=== PATIENT | male | born 1955 | race Caucasian/White ===

== ENCOUNTER 2019-10-11 07:57 | Day surgery (SDC) | payer OTHER, MEDICARE ==
[2019-10-08 11:44] LABS: ABSOLUTE EOSINOPHILS # (AUTO) 0.1 10^3/uL (0.0-0.6); ABSOLUTE LYMPHOCYTES (AUTO) 2.8 10^3/uL (0.5-4.7); ABSOLUTE MONOCYTES (AUTO) 0.4 10^3/uL (0.1-1.4); ABSOLUTE NEUT (AUTO) 3.6 10^3/uL (1.7-8.2); BASOPHILS % (AUTO) 0.5 % (0-2); EOSINOPHILS % (AUTO) 1.5 % (0-6); HEMATOCRIT 39.6 % (37.9-51.0); HEMOGLOBIN 13.8 g/dL (13.5-17.0); LYMPHOCYTES % (AUTO) 40.8 % (13-45); MEAN CORPUSCULAR HEMOGLOBIN 32.9 pg (27.0-33.4); MEAN CORPUSCULAR HGB CONC 34.9 g/dL (32.0-36.0); MEAN CORPUSCULAR VOLUME 94 fl (80-97); MONOCYTES % (AUTO) 5.4 % (3-13); PLATELET COUNT 186 10^3/uL (150-450); RED CELL DISTRIBUTION WIDTH 14.1 % (11.5-14.0); SEGMENTED NEUTROPHILS % (AUTO) 51.8 % (42-78); TOTAL CELLS COUNTED % (AUTO) 100 %; WHITE BLOOD COUNT 6.9 10^3/uL (4.0-10.5)
[2019-10-08 12:09] LABS: ANION GAP 6 (5-19); BLOOD UREA NITROGEN 8 mg/dL (7-20); CALCIUM 8.9 mg/dL (8.4-10.2); CARBON DIOXIDE 33 mmol/L (22-30); CHLORIDE 97 mmol/L (98-107); GLUCOSE 97 mg/dL (75-110); POTASSIUM 3.2 mmol/L (3.6-5.0)
--- NOTE | 2019-10-08 14:59 | EKG REPORT ---
SEVERITY:- BORDERLINE ECG - SINUS RHYTHM BORDERLINE T WAVE ABNORMALITIES : Confirmed by: Greer Anne MD 08-Oct-2019 14:58:24
[~2019-10-11 07:57] MED LIST: ACETAMINOPHEN 325 MG TABLET PO PRN; CEFAZOLIN 2 GM/D5W RTU 2 GM/50 ML RTUPB IV PRN; CELECOXIB 200 MG CAPSULE PO PRN; DEXAMETHASONE SOD PHOSPHATE INJ 4 MG/1 ML VIAL ONE; EPINEPHRINE INJ/PF 1 MG/1 ML AMPULE ONE; FENTANYL CITRATE INJ/PF 100 MCG/2 ML AMPUL ONE; GABAPENTIN 100 MG CAPSULE PO PRN; LACTATED RINGERS 1000 ML IV PRN; LIDOCAINE 0.5% INJ-PF (5 MG/ML) 50 ML SDV SUBCUT PRN; MIDAZOLAM 2 MG/2 ML INJ ONE; ONDANSETRON HCL INJ/PF 4 MG/2 ML SDV IV PRN; ONDANSETRON HCL INJ/PF 4 MG/2 ML SDV ONE; OXYCODONE HCL SR 10 MG TABLET PO PRN; PROPOFOL INJ 200 MG/20 ML VIAL IV ONE; SCOPOLAMINE HYDROBROMIDE 1.5 MG PATCH.TD72 TD PRN; TRAMADOL HCL 50 MG TABLET PO PRN; TRANEXAMIC ACID INJ/PF 1,000 MG/10 ML SDV IV PRN; TRANEXAMIC ACID INJ/PF 1,000 MG/10 ML SDV ONE; VANCOMYCIN HCL 1,000 MG in DEXTROSE 5%-WATER 250 ML IV PRN
[2019-10-11] MEDS ORDERED: CEFAZOLIN 2 GM/D5W RTU 2 GM/50 ML RTUPB IV ONE (08:31)
[2019-10-11] MEDS ORDERED: ONDANSETRON HCL INJ/PF 4 MG/2 ML SDV ONE (08:31)
[2019-10-11] MEDS ORDERED: ACETAMINOPHEN 325 MG TABLET ONE (08:31)
[2019-10-11] MEDS ORDERED: SCOPOLAMINE HYDROBROMIDE 1.5 MG PATCH.TD72 ONE (08:31)
[2019-10-11] MEDS ORDERED: CELECOXIB 200 MG CAPSULE ONE (08:31)
[2019-10-11] MEDS ORDERED: TRAMADOL HCL 50 MG TABLET ONE (08:31)
[2019-10-11] MEDS ORDERED: OXYCODONE HCL SR 10 MG TABLET PO ONE (08:31)
[2019-10-11] MEDS ORDERED: GABAPENTIN 100 MG CAPSULE ONE (08:32)
[2019-10-11 09:00] LABS: INTERNATIONAL RATION (INR) 0.98; PARTIAL THROMBOPLASTIN TIME 28.7 SEC (23.5-35.8)
[2019-10-11] MEDS ORDERED: KETOROLAC TROMETHAMINE INJ/PF 30 MG/1 ML SDV ONE (10:26)
[2019-10-11] MEDS ORDERED: VANCOMYCIN HCL INJ 1000 MG VIAL ONE (10:26)
[2019-10-11] MEDS ORDERED: LIDOCAINE 1% INJ-PF (10 MG/ML) 30 ML SDV ONE (10:26)
[2019-10-11] MEDS ORDERED: BUPIVACAINE HCL 0.25 % INJ/PF (2.5 MG/1 ML) 30 ML VIAL ONE (10:26)
[2019-10-11] MEDS ORDERED: KETAMINE HCL INJ 500 MG/10 ML VIAL ONE (10:39)
[2019-10-11] MEDS ORDERED: CEFAZOLIN INJ 1 GM VIAL ONE (11:28)
[2019-10-11] MEDS ORDERED: MORPHINE SULFATE 10 MG/ML INJ IV PRN ×2 (12:26→14:04)
[2019-10-11] MEDS ORDERED: MEPERIDINE HCL/PF INJ 25 MG/1 ML DISP.SYRIN IV PRN (12:26)
[2019-10-11] MEDS ORDERED: FENTANYL CITRATE INJ/PF 100 MCG/2 ML AMPUL IV PRN ×3 (12:26)
[2019-10-11] MEDS ORDERED: ONDANSETRON HCL INJ/PF 4 MG/2 ML SDV IV PRN (12:26)
[2019-10-11] MEDS ORDERED: DIPHENHYDRAMINE HCL 50 MG/ML VIAL IV PRN (12:26)
[2019-10-11] MEDS ORDERED: PROMETHAZINE HCL INJ 25 MG/1 ML VIAL IV PRN ×2 (12:26)
--- NOTE | 2019-10-11 14:02 | Operative Report ---
Operative Report DATE OF SURGERY: 10/11/19 PREOPERATIVE DIAGNOSIS: Right severe primary hip osteoarthritis POSTOPERATIVE DIAGNOSIS: Right severe primary hip osteoarthritis OPERATION: Right total hip arthroplasty SURGEON: THOMAS BECERRA JR ANESTHESIA: Spinal COMPLICATIONS: none ESTIMATED BLOOD LOSS: 200 PROCEDURE: Implants: Joe Accolade size 5 femoral stem with 127 offset, a 56 size cup, and a 36 standard liner, a standard neck length 36 mm ceramic head BRIEF HISTORY: 63 year old male with severe degenerative arthritis of right hip, which has failed conservative treatment and has elected for a total hip arthroplasty. Risks include but are not limited to bleeding, infection, anesthesia, , injury to nerve or vessel, pain, scar, leg length inequality, dislocation, future surgery, and blood clots. Patient read through the pre-op counseling form and signed and solicited for surgery on their right hip. OPERATIVE PROCEDURE: Patient was brought to the operating room on and underwent spinal anesthesia. 3 grams of Ancef and 1 g of vancomycin was given. After proper anesthesia was obtained, patient was positioned, padded, prepped, and draped in the usual sterile fashion on the operating room table. Appropriate time out was performed. An anterior approach to the hip was undertaken with meticulous hemostasis through the deep interval. A capsulectomy was performed followed by exposure of the femoral neck. The femoral neck was cut in line with the femoral broach and the femoral head was removed. The acetabulum was then exposed with three retractors in an atraumatic fashion. Soft tissue and osteophytes were removed. Medialization reaming was performed followed by anatomic reaming up to accept a 56 mm acetabulum. Wound was irrigated with dilute betadyne solution and the 56 mm acetabulum was impacted into correct position and stability checked by manipulating the impaction handle which rocked the pelvis. A standard liner was impacted into the shell with good stability. Potential impinging osteophytes were removed. Attention was then directed toward the femur, which was exposed with two retractors in an atraumatic fashion. A bone hook was placed to carefully perform releases along the superior capsule until the femur was safely delivered through the wound. A box blank machine feeder was utilized followed by lateralization rasping and then broaching up to accept a 5 femur. With a 127 offset neck and a -5 head, stability was good in flexion and extension with slightly short on the right leg lengths. The real 127 offset femur was impacted into a copiously irrigated femoral canal. A -5 mm 36 mm head was impacted on a clean dry femoral taper. The hip was irrigated and reduced. Unfortunately after subsequent trialing this was found to be unstable. We reevaluated the hip stem and found that it had seated further than the broach by 2 to 3 mm. Fluoroscopy was used to ensure that this was not due to a femoral fracture. We impacted the femoral stem further but no further seating was capable. We removed the -5 head and re-impacted a standard head that produced near equal leg length with slight increased leg length on the right but overall excellent stability. Further irrigation with antibiotic solution, betadine solution, then antibiotic solution. Bleeders were coagulated with bovie cautery. The fascia was then closed with number 2 Stratofix; the subcutaneous tissue closed with interrupted inverted 2-0 monocryl then running 3-0 monocryl subcuticular. Dermabond skin glue was applied followed by a silver dressing. All needle sponge and instrument counts were correct. Patient was awakened from sedation anesthesia and taken to recovery room in good condition. Patient is a BMI of 38.8 and additionally is very muscular. This required increased effort and time to achieve an adequate exposure and work around a tight hip with substantial soft tissue. Increased effort was required to per form releases in order to expose the femur but also carefully enough to ensure that he maintains stability post operatively. Due to increased time and effort will be billing a 22 modifier. Thank you, Thomas Becerra, DO
[2019-10-11] MEDS ORDERED: OXYCODONE HCL IR 5 MG TABLET PO PRN (14:03)
[2019-10-11] MEDS ORDERED: DIPHENHYDRAMINE HCL 25 MG CAPSULE PO PRN (14:07)
[2019-10-11] MEDS ORDERED: PANTOPRAZOLE SODIUM 20 MG TABLET.DR PO PRN (14:07)
[2019-10-11] MEDS ORDERED: ZOLPIDEM TARTRATE 5 MG TABLET PO PRN (14:08)
[2019-10-11] MEDS ORDERED: DOCUSATE SODIUM 100 MG CAPSULE PO PRN (14:08)
[2019-10-11] MEDS ORDERED: NORMAL SALINE 1000 ML 1,000 ML IV PRN (14:09)
[2019-10-11] MEDS ORDERED: ONDANSETRON 4 MG TAB.RAPDIS PO PRN (14:10)
--- NOTE | 2019-10-11 14:33 | RADIOLOGY REPORT (SQ) ---
EXAM DESCRIPTION: HIP IN OPERATING RM; NO CHG FLUORO IMAGES COMPLETED DATE/TIME: 10/11/2019 1:32 pm REASON FOR STUDY: RIGHT HIP ARTHROPLASTY ASSISTED WITH FLUORO IN OR M25.551 PAIN IN RIGHT HIP COMPARISON: Outside films 06/26/2019 FLUOROSCOPY TIME: 0.2 minutes 3 digital fluoroscopic images saved to PACS. TECHNIQUE: Intra-operative images acquired during surgical procedure to evaluate progress. NUMBER OF IMAGES: 3 digital fluoroscopic images LIMITATIONS: None. FINDINGS: Intra procedural imaging and fluoro during right hip replacement. Please see the operativ e report for further details IMPRESSION: IMAGE(S) OBTAINED DURING PROCEDURE. COMMENT: Quality ID [id number]: Final reports for procedures using fluoroscopy that document radiation exp osure indices, or exposure time and number of fluorographic images (if radiation exposure indices are not available) Please consult full operative report of the attending physician for description of the procedure. TECHNICAL DOCUMENTATION: JOB ID: [id number] 2010 [employer]- All Rights Reserved Reading location - IP/workstation name: [email or web address]
--- NOTE | 2019-10-11 14:33 | RADIOLOGY REPORT (SQ) ---
EXAM DESCRIPTION: HIP IN OPERATING RM; NO CHG FLUORO IMAGES COMPLETED DATE/TIME: 10/11/2019 1:32 pm REASON FOR STUDY: RIGHT HIP ARTHROPLASTY ASSISTED WITH FLUORO IN OR M25.551 PAIN IN RIGHT HIP COMPARISON: Outside films 06/26/2019 FLUOROSCOPY TIME: 0.2 minutes 3 digital fluoroscopic images saved to PACS. TECHNIQUE: Intra-operative images acquired during surgical procedure to evaluate progress. NUMBER OF IMAGES: 3 digital fluoroscopic images LIMITATIONS: None. FINDINGS: Intra procedural imaging and fluoro during right hip replacement. Please see the operativ e report for further details IMPRESSION: IMAGE(S) OBTAINED DURING PROCEDURE. COMMENT: Quality ID [id number]: Final reports for procedures using fluoroscopy that document radiation exp osure indices, or exposure time and number of fluorographic images (if radiation exposure indices are not available) Please consult full operative report of the attending physician for description of the procedure. TECHNICAL DOCUMENTATION: JOB ID: [id number] 2010 [employer]- All Rights Reserved Reading location - IP/workstation name: [email or web address]
--- NOTE | 2019-10-11 14:35 | RADIOLOGY REPORT (SQ) ---
EXAM DESCRIPTION: HIP RIGHT AP/LATERAL IMAGES COMPLETED DATE/TIME: 10/11/2019 2:27 pm REASON FOR STUDY: HIP REPLACEMENT M25.551 PAIN IN RIGHT HIP COMPARISON: None. NUMBER OF VIEWS: Two views. TECHNIQUE: AP pelvis and additional frog-leg view of the right hip. LIMITATIONS: None. FINDINGS: Bilateral total hip arthroplasty. No evidence of loosening or infection. No dislocation. IMPRESSION: Intact hip arthroplasty. TECHNICAL DOCUMENTATION: JOB ID: [id number] 2010 [employer]- All Rights Reserved Reading location - IP/workstation name: [email or web address]
[2019-10-11] MEDS ORDERED: GLYCOPYRROLATE 1 MG/5 ML VIAL ONE (14:55)
[2019-10-11] MEDS ORDERED: PHENYLEPHRINE HCL INJ/PF 10 MG/1 ML SDV ONE (14:55)
[2019-10-11] MEDS ORDERED: HYDROCODONE/ACETAMINOPHEN 10-325 MG TABLET PO SCH (15:15)
[2019-10-11] MEDS ORDERED: CEFAZOLIN SODIUM 2 GM in DEXTROSE 5%-WATER 100 ML IV SCH (18:00)
[2019-10-11] MEDS ORDERED: TAMSULOSIN HCL 0.4 MG CAP.SR.24H PO SCH (18:00)
[2019-10-11] MEDS: GABAPENTIN 100 MG CAPSULE PO SCH (18:00)
[2019-10-11] MEDS: DIAZEPAM 5 MG TABLET PO SCH (18:01)
[2019-10-11] MEDS: KETOROLAC TROMETHAMINE INJ/PF 30 MG/1 ML SDV IV SCH (18:02)
[2019-10-11] MEDS: CEFAZOLIN SODIUM 2 GM in DEXTROSE 5%-WATER 100 ML IV SCH (19:09)
[2019-10-11] MEDS: ACETAMINOPHEN 325 MG TABLET PO SCH (21:36)
[2019-10-11] MEDS: OXYCODONE HCL IR 5 MG TABLET PO PRN (22:28)
[2019-10-12] MEDS: KETOROLAC TROMETHAMINE INJ/PF 30 MG/1 ML SDV IV SCH ×2 (01:44→10:55)
[2019-10-12] MEDS: CEFAZOLIN SODIUM 2 GM in DEXTROSE 5%-WATER 100 ML IV SCH (01:46)
[2019-10-12] MEDS: TRAMADOL HCL 50 MG TABLET PO PRN ×2 (03:07→11:26)
[2019-10-12] MEDS: ACETAMINOPHEN 325 MG TABLET PO SCH (05:16)
--- NOTE | 2019-10-12 07:22 | PDOC PROGRESS REPORT ---
Subjective Progress Note for:: 10/12/19 Subjective:: The patient is doing well this AM. Pain is present but not out of proportion and well controlled on their current medications. There are no new symptoms or overnight events. Overall they are felling well without complaints. They deny chest pain, shortness of breath or motor or sensory loss. He reports taking less pain medication now than his regular home routine, and is still relatively comfortable, and pleased with his postoperative pain. Reason For Visit: M25.551 PAIN IN RIGHT HIP Physical Exam Vital Signs: Temp Pulse Resp BP Pulse Ox 97.7 F 68 18 121/67 93 10/11/19 23:12 10/11/19 23:12 10/11/19 23:12 10/11/19 23:12 10/11/19 23:12 Intake & Output 10/11/19 10/12/19 10/13/19 06:59 06:59 06:59 Intake Total 6041 Output Total 200 Balance 5841 Weight 114.2 kg Physical Exam: General appearance: PRESENT: no acute distress, cooperative, well-nourished Head exam: PRESENT: atraumatic, normocephalic Eye exam: PRESENT: EOMI Ear exam: PRESENT: normal external ear exam Mouth exam: PRESENT: neck supple Neck exam: ABSENT: tracheal deviation Respiratory exam: PRESENT: symmetrical, unlabored. ABSENT: accessory muscle use, wheezes Pulses: PRESENT: normal radial pulses, normal dorsalis pedis pulse Vascular exam: PRESENT: normal capillary refill GI/Abdominal exam: ABSENT: distended, firm Extremities exam: PRESENT: full ROM of bilateral shoulders, elbows wrists, knees, hips and ankles without pain Musculoskeletal exam: PRESENT: full ROM, normal inspection of all 4 extremities aside from that noted below. Neurological exam: PRESENT: alert, awake, oriented to person, oriented to place, oriented to time Psychiatric exam: PRESENT: appropriate affect. ABSENT: agitated Focused psych exam: ABSENT: catatonic Skin exam: PRESENT: intact. ABSENT: dry All as above aside from that noted in the HPI and the following: Right lower extremity -Pulses 2+ distally -Compartments soft -Sensation grossly intact to L3-4-5 S1 -Motor grossly intact to EHL TA gastroc and quad -Wound clean dry and intact -Able to perform active straight leg raise with heel off the bed. Results Laboratory Results: 10/08/19 10:45 10/11/19 08:27 10/11/19 10/11/19 08:27 08:27 Potassium 3.1 L Blood Type B POSITIVE Antibody Screen NEGATIVE Impressions: Fluoroscopy 10/11/19 00:00 IMPRESSION: IMAGE(S) OBTAINED DURING PROCEDURE. Hip X-Ray 10/11/19 00:00 IMPRESSION: IMAGE(S) OBTAINED DURING PROCEDURE. Hip/Pelvis X-Ray 10/11/19 00:00 IMPRESSION: Intact hip arthroplasty. Assessment & Plan - Diagnosis (1) Status post total replacement of right hip Is this a current diagnosis for this admission?: Yes Plan: - 2 doses of Ancef postoperatively q 8 hours to complete 24 hours perioperatively -Weightbearing as tolerated, no precautions, encourage out of bed REUBEN for ADL training - PT/OT - Keep knee extended in bed, rolled towel under the ankle to obtain full extension -aspirin 325 daily for DVT prophylaxis for 6 weeks -multimodal pain management to avoid excessive narcotics, including gabapentin, tramadol, Toradol, acetaminophen. -Dressing should not be removed for 7 to 10 days until seen in the office -May shower with the dressing intact, if it starts to come off she should not get the incision wet. -I would like to follow the patient my office within the next 7 to [address] [place] [address]. in [place] office #: [phone] - Time Time Spent with patient: Less than 15 minutes
--- NOTE | 2019-10-12 07:31 | PDOC DISCHARGE SUMMARY ---
Impression - Admit/DC Date/PCP Discharge Date: 10/12/19 - Discharge Diagnosis (1) Status post total replacement of right hip Is this a current diagnosis for this admission?: Yes - Assessment Summary: Mr. Dias is a very pleasant 63-year-old male who presented to my clinic with chronic right hip pain that is been going on for over a year. After thorough work-up and attempts at conservative treatment including activity modification and mchv-[id number] pain medication, they were having severe difficulty with ambulation and was over the counter pain medication for daily activity. They found the pain debilitating and decreasing thier quality of life as they were unable to perform activities of daily living such as ambulating short distances and getting in and out of the car. After a thorough work-up including x-rays that demonstrated joint space narrowing, fzff-gl-vdos contact, subchondral sclerosis, and osteophyte formation as well as discussing risks and benefits and other treatment options, the patient elected to proceed with a right total hip arthroplasty. They were brought to the operating room on 10/11/2019 and underwent a right total hip arthroplasty and tolerated procedure very well with out complication. They were then admitted to the hospital floor for postoperative medical management, monitoring, and pain control. On postoperative day #1 they were ambulating well with physical therapy, to the degree that they approved them for discharge home. They were discharged home on 10/12/2019. They had no acute events or complications over the course of their stay. All detailed instructions and prescriptions were provided to the patient prior to admission on the year prior office visit. - Additional Information Resuscitation Status: Full Code Discharge Diet: As Tolerated Discharge Activity: Activity As Tolerated, No Driving, Keep Legs Elevated, No Lifting Over 10 Pounds, No Lifting/Push/Pulling, Slowly Increase Activity, Supervised Activity, No tub bath, Walk Frequently Referrals: NOELLE BECERRA JR, DO [ACTIVE PROVISIONAL STAFF] - Home Medications: Atorvastatin Calcium [Lipitor 40 mg Tablet] 40 mg PO QHS 07/18/19 Diazepam [Valium 5 mg Tablet] 5 mg PO BID 07/18/19 Duloxetine HCl [Cymbalta 30 mg Capsule.dr] 30 mg PO DAILY 07/18/19 Gabapentin 600 mg PO DAILY 07/18/19 Hydrochlorothiazide [Hydrodiuril 25 mg Tablet] 25 mg PO DAILY 07/18/19 Hydrocodone/Acetaminophen [[place] 10-325 mg Tablet] 1 tab PO 5XDP PRN 07/18/19 Hydromorphone HCl [Dilaudid] 4 mg PO Q6HP PRN 07/18/19 Losartan Potassium 100 mg PO DAILY 07/18/19 Omeprazole 40 mg PO BID 07/18/19 Tamsulosin HCl [Flomax] 0.4 mg PO DAILY 07/18/19 Acetaminophen [Tylenol 325 mg Tablet] 975 mg PO Q8 tablet 10/12/19 Aspirin [Aspirin 325 mg Tablet] 325 mg PO DAILY tablet 10/12/19 Celecoxib [Celebrex 200 mg Capsule] 200 mg PO DAILY capsule 10/12/19 Diphenhydramine HCl [Benadryl 25 mg Capsule] 25 mg PO Q6HP PRN capsule 10/12/19 Docusate Sodium [Colace 100 mg Capsule] 100 mg PO TIDP PRN capsule 10/12/19 Gabapentin [Neurontin 100 mg Capsule] 100 mg PO BID capsule 10/12/19 Hydrochlorothiazide [Hydrodiuril 25 mg Tablet] 25 mg PO DAILY tablet 10/12/19 Oxycodone HCl [Oxy-Ir 5 mg Tablet] 5 mg PO Q4HP PRN tablet 10/12/19 Oxycodone HCl [Oxy-Ir 5 mg Tablet] 10 mg PO Q4HP PRN tablet 10/12/19 Tramadol HCl [Ultram 50 mg Tablet] 50 mg PO Q4HP PRN tablet 10/12/19 History of Present Illiness History of Present Illness: JUDITH DIAS is a 63 year old male Physical Exam Vital Signs: Temp Pulse Resp BP Pulse Ox 97.7 F 68 18 121/67 93 10/11/19 23:12 10/11/19 23:12 10/11/19 23:12 10/11/19 23:12 10/11/19 23:12 Intake & Output 10/11/19 10/12/19 10/13/19 06:59 06:59 06:59 Intake Total 6041 Output Total 200 Balance 5841 Weight 114.2 kg Results Laboratory Results: WBC 6.9 10^3/uL (4.0-10.5) 10/08/19 10:45 RBC 4.20 10^6/uL (4.35-5.55) L 10/08/19 10:45 Hgb 13.8 g/dL (13.5-17.0) 10/08/19 10:45 Hct 39.6 % (37.9-51.0) 10/08/19 10:45 MCV 94 fl (80-97) 10/08/19 10:45 MCH 32.9 pg (27.0-33.4) 10/08/19 10:45 MCHC 34.9 g/dL (32.0-36.0) 10/08/19 10:45 RDW 14.1 % (11.5-14.0) H 10/08/19 10:45 Plt Count 186 10^3/uL (150-450) 10/08/19 10:45 Lymph % (Auto) 40.8 % (13-45) 10/08/19 10:45 Sebastian % (Auto) 5.4 % (3-13) 10/08/19 10:45 Eos % (Auto) 1.5 % (0-6) 10/08/19 10:45 Baso % (Auto) 0.5 % (0-2) 10/08/19 10:45 Absolute Neuts (auto) 3.6 10^3/uL (1.7-8.2) 10/08/19 10:45 Absolute Lymphs (auto) 2.8 10^3/uL (0.5-4.7) 10/08/19 10:45 Absolute Monos (auto) 0.4 10^3/uL (0.1-1.4) 10/08/19 10:45 Absolute Eos (auto) 0.1 10^3/uL (0.0-0.6) 10/08/19 10:45 Absolute Basos (auto) 0.0 10^3/uL (0.0-0.2) 10/08/19 10:45 Seg Neutrophils % 51.8 % (42-78) 10/08/19 10:45 PT 13.0 SEC (11.4-15.4) 10/11/19 08:27 INR 0.98 10/11/19 08:27 APTT 28.7 SEC (23.5-35.8) 10/11/19 08:27 Sodium 136.0 mmol/L (137-145) L 10/08/19 10:45 Potassium 3.1 mmol/L (3.6-5.0) L 10/11/19 08:27 Chloride 97 mmol/L (98-107) L 10/08/19 10:45 Carbon Dioxide 33 mmol/L (22-30) H 10/08/19 10:45 Anion Gap 6 (5-19) 10/08/19 10:45 BUN 8 mg/dL (7-20) 10/08/19 10:45 Creatinine 0.99 mg/dL (0.52-1.25) 10/08/19 10:45 Est GFR ( Amer) > 60 (>60) 10/08/19 10:45 Est GFR (MDRD) Non-Af > 60 (>60) 10/08/19 10:45 Glucose 97 mg/dL (75-110) 10/08/19 10:45 Calcium 8.9 mg/dL (8.4-10.2) 10/08/19 10:45 COVID-19 Source NASOPHARYNGEAL 10/08/19 10:45 COVID-19 (MIKKI) NOT DETECTED 10/08/19 10:45 Blood Type B POSITIVE 10/11/19 08:27 Antibody Screen NEGATIVE 10/11/19 08:27 Impressions: Fluoroscopy 10/11/19 00:00 IMPRESSION: IMAGE(S) OBTAINED DURING PROCEDURE. Hip X-Ray 10/11/19 00:00 IMPRESSION: IMAGE(S) OBTAINED DURING PROCEDURE. Hip/Pelvis X-Ray 10/11/19 00:00 IMPRESSION: Intact hip arthroplasty. Stroke Is this a Stroke Patient?: No Acute Heart Failure - Is this a Heart Failure Patient?: No
[2019-10-12] MEDS: OXYCODONE HCL IR 5 MG TABLET PO PRN ×2 (08:11→12:15)
[2019-10-12] MEDS ORDERED: ASPIRIN 325 MG TABLET PO SCH (10:00)
[2019-10-12] MEDS ORDERED: (PENDING PHARMACY ID) (Losartan Potassium [Losartan Potassium] 100 MG) PO SCH (10:00)
[2019-10-12] MEDS ORDERED: DULOXETINE HCL 30 MG CAPSULE.DR PO SCH (10:00)
[2019-10-12] MEDS ORDERED: ATORVASTATIN CALCIUM 40 MG TABLET PO SCH (10:00)
[2019-10-12] MEDS ORDERED: ASPIRIN 325 MG TABLET, ENT COATED PO SCH (10:00)
[2019-10-12] MEDS ORDERED: LOSARTAN POTASSIUM 50 MG TABLET PO SCH (10:00)
[2019-10-12] MEDS ORDERED: POLYETHYLENE GLYCOL 3350 POWDER 17 GM/1 PACKET PO SCH (10:00)
[2019-10-12] MEDS ORDERED: HYDROCHLOROTHIAZIDE 25 MG TABLET PO SCH (10:00)
[2019-10-12] MEDS ORDERED: ASPIRIN 81 MG TABLET, CHEWABLE PO SCH (10:00)
[2019-10-12] MEDS: GABAPENTIN 100 MG CAPSULE PO SCH (10:54)
[2019-10-12] MEDS: DIAZEPAM 5 MG TABLET PO SCH (10:55)
[2019-10-12 12:00] VITALS: BP 136/81
[2019-10-13] MEDS ORDERED: CELECOXIB 200 MG CAPSULE PO SCH (10:00)
== END 2019-10-12 12:45 | disposition home health service (06) ==
LOC: OROUT 07:57 → 4S 14:48 → OROUT 10-12 12:45
PROVIDERS: ATTEND Orthopaedic Surgery
DX: M16.11 Unilateral primary osteoarthritis, right hip (principal); M25.551 Pain in right hip; I25.2 Old myocardial infarction; M51.36 Other intervertebral disc degeneration, lumbar region; I25.10 Atherosclerotic heart disease of native coronary artery without angina pectoris; I10 Essential (primary) hypertension; Z79.82 Long term (current) use of aspirin; Z79.899 Other long term (current) drug therapy; Z03.818 Encounter for observation for suspected exposure to other biological agents ruled out
CPT/HCPCS: 93005; 86900; 86901; 36415 ×2; 86850; 84132; 85025; 85610; 85730; 87635; 80048; 73502; 73501; 93010; 97110; 97116; 97163; 97535; 97165; 27130; C1776 ×5; C1887; J2250; J0690 ×3; J1100; J3490 ×5; J0171; S0119; J3010; J1885 ×2; J2370; J2405; J7060 ×3; J7030; J2704; J3370; C9803; 01214

== ENCOUNTER 2019-11-27 17:00 | Inpatient (IN) | payer OTHER, MEDICARE ==
[2019-11-27] MEDS ORDERED: ONDANSETRON HCL INJ/PF 4 MG/2 ML SDV IV PRN (17:14)
[2019-11-27] MEDS ORDERED: HYDRALAZINE HCL INJ/PF 20 MG/1 ML SDV IV PRN (17:22)
--- NOTE | 2019-11-27 17:32 | PDOC CONSULTATION ---
Consultation Consult Date: 11/27/19 Attending physician:: Dr. Montes Provider Consulted: DEMARCUS SMITH Consult reason:: History of hypertension, congestive heart failure History of Present Illness Admission Date/PCP: 11/27/19 17:00 Patient complains of: History of fall with right hip fracture History of Present Illness: JUDITH COLLAZO is a 63 year old male With history of hypertension, chronic diastolic heart failure, coronary artery disease with 5 stents placement, chronic smoker, history of sleep apnea, BPH, hyperlipidemia with recent history of right total hip arthroplasty came from a [facility]. He was admitted there after a fall and found to have a right periprosthetic fracture. Patient requested for a transfer to this hospital for possible surgery with Dr. Montes. Because of the medical issues, chronic medical issues Dr. Montes requested for a hospitalist consult. Patient is comfortably in the bed communicating well. Wants to be DNR. Past Medical History Cardiac Medical History: Reports: Hyperlipidema, Hypertension Denies: Coronary Artery Disease, Myocardial Infarction Pulmonary Medical History: Denies: Asthma, Bronchitis, Chronic Obstructive Pulmonary Disease (COPD), Sleep Apnea Neurological Medical History: Denies: Seizures Endocrine Medical History: Denies: Hyperthyroidism, Hypothyroidism GI Medical History: Denies: Gastroesophageal Reflux Disease Musculoskeltal Medical History: Reports: Arthritis Denies: Fibromyalgia Psychiatric Medical History: Reports: Depression Denies: Bipolar Disorder, Post Traumatic Stress Disorder Hematology: Denies: Anemia Past Surgical History Past Surgical History: Reports: Appendectomy Denies: Cholecystectomy, Coronary Artery Bypass Graft, Gastric Bypass Surgery, Herniorrhaphy, Pacemaker, Tonsillectomy Social History Smoking Status: Current Every Day Smoker Electronic Cigarette use?: No Frequency of Alcohol Use: Occasional Hx Recreational Drug Use: No Hx Prescription Drug Abuse: No - Advance Directive Resuscitation Status: Do Not Resuscitate Family History Parental Family History Reviewed: Yes Children Family History Reviewed: Yes Sibling(s) Family History Reviewed.: Yes Medication/Allergy Home Medications: Atorvastatin Calcium [Lipitor 40 mg Tablet] 40 mg PO QHS 07/18/19 Diazepam [Valium 5 mg Tablet] 5 mg PO BID 07/18/19 Duloxetine HCl [Cymbalta 30 mg Capsule.] 30 mg PO DAILY 07/18/19 Gabapentin 600 mg PO DAILY 07/18/19 Hydrochlorothiazide [Hydrodiuril 25 mg Tablet] 25 mg PO DAILY 07/18/19 Hydrocodone/Acetaminophen [[place] 10-325 mg Tablet] 1 tab PO 5XDP PRN 07/18/19 Hydromorphone HCl [Dilaudid] 4 mg PO Q6HP PRN 07/18/19 Losartan Potassium 100 mg PO DAILY 07/18/19 Omeprazole 40 mg PO BID 07/18/19 Tamsulosin HCl [Flomax] 0.4 mg PO DAILY 07/18/19 Acetaminophen [Tylenol 325 mg Tablet] 975 mg PO Q8 tablet 10/12/19 Aspirin [Aspirin 325 mg Tablet] 325 mg PO DAILY tablet 10/12/19 Celecoxib [Celebrex 200 mg Capsule] 200 mg PO DAILY capsule 10/12/19 Diphenhydramine HCl [Benadryl 25 mg Capsule] 25 mg PO Q6HP PRN capsule 10/12/19 Docusate Sodium [Colace 100 mg Capsule] 100 mg PO TIDP PRN capsule 10/12/19 Gabapentin [Neurontin 100 mg Capsule] 100 mg PO BID capsule 10/12/19 Hydrochlorothiazide [Hydrodiuril 25 mg Tablet] 25 mg PO DAILY tablet 10/12/19 Oxycodone HCl [Oxy-Ir 5 mg Tablet] 5 mg PO Q4HP PRN tablet 10/12/19 Oxycodone HCl [Oxy-Ir 5 mg Tablet] 10 mg PO Q4HP PRN tablet 10/12/19 Tramadol HCl [Ultram 50 mg Tablet] 50 mg PO Q4HP PRN tablet 10/12/19 Allergies/Adverse Reactions: amlodipine Adverse Reaction (Verified 10/11/19 08:16) Review of Systems Constitutional: ABSENT: fatigue, fever(s), weakness Eyes: ABSENT: visual disturbances Ears: ABSENT: hearing changes Nose, Mouth, and Throat: ABSENT: sore throat Cardiovascular: ABSENT: edema, orthropnea, palpitations Respiratory: ABSENT: cough, dyspnea Gastrointestinal: ABSENT: diarrhea, hematemesis, nausea, vomiting Genitourinary: ABSENT: difficulty urinating, dysuria Musculoskeletal: PRESENT: other - Complaining of severe right hip pain Neurological: ABSENT: abnormal gait, abnormal speech, confusion, dizziness, focal weakness, syncope Psychiatric: ABSENT: anxiety, depression, homidical ideation, suicidal ideation Physical Exam General appearance: PRESENT: well-developed, other - In mild to moderate distress Head exam: PRESENT: atraumatic Eye exam: PRESENT: PERRLA Mouth exam: PRESENT: moist, tongue midline Teeth exam: PRESENT: poor dentation Neck exam: ABSENT: carotid bruit, JVD, lymphadenopathy, thyromegaly Respiratory exam: PRESENT: decreased breath sounds Cardiovascular exam: PRESENT: RRR. ABSENT: diastolic murmur, rubs, systolic murmur GI/Abdominal exam: PRESENT: normal bowel sounds, soft. ABSENT: distended, guarding, mass, organolmegaly, rebound, tenderness Rectal exam: PRESENT: deferred Extremities exam: PRESENT: other - Right lower leg is short compared to left leg and deviated outwards. Neurological exam: PRESENT: alert, awake, oriented to person, oriented to place, oriented to time, oriented to situation, CN II-XII grossly intact. ABSENT: motor sensory deficit Psychiatric exam: PRESENT: appropriate affect, normal mood. ABSENT: homicidal ideation, suicidal ideation Assessment and Plan - Diagnosis (1) Fall Is this a current diagnosis for this admission?: Yes Plan: 11/27/2019-patient admitted with a fall followed by right periprosthetic fracture. Dr. Montes is going to admit the patient be requested for hospitalist consultation. Patient is going for surgery tomorrow. He is going to be n.p.o. for bleed. Basic labs and EKG was requested. Echocardiogram is requested. Not on DVT prophylaxis because of the imminent surgery tomorrow. Physical therapy consult case management consult requested. (2) Hip fracture Is this a current diagnosis for this admission?: Yes Plan: 11/19/2019-patient admitted with a fall followed by right periprosthetic [place] B12 proximal femur fracture. Dr. Montes is planning to take him to the OR tomorrow. Patient started on IV morphine 1 mg every 4 hours as needed basis. GI prophylaxis initiated. Physical therapy consult was requested major case detective consult was requested. To hold aspirin at this time. (3) HTN (hypertension) Is this a current diagnosis for this admission?: No Plan: 11/19/2019-patient has history of chronic essential hypertension to start him on IV hydralazine 10 mg every 6 hours as needed for systolic blood pressure more than 170. (4) Tobacco abuse Is this a current diagnosis for this admission?: No Plan: 11/27/2019-patient is a chronic daily day smoker smoking consult was provided for more than [address] him on nicotine patches. (5) CHF (congestive heart failure) Is this a current diagnosis for this admission?: No Plan: 11/19/2019-patient has history of chronic diastolic heart failure echocardiogram is requested. On examination patient is not in fluid overload. - Time Anticipated Discharge Disposition: [facility] Anticipated Discharge: within 48 hours
[2019-11-27] MEDS ORDERED: LORAZEPAM INJ 2 MG/1 ML VIAL IV PRN (17:34)
[2019-11-27] MEDS ORDERED: POTASSI CL 20 MEQ/NS 1L 1,000 ML IV PRN (18:16)
[2019-11-27] MEDS ORDERED: DEXTROSE 40% GEL 15 GM TUBE PO PRN ×2 (18:16)
[2019-11-27] MEDS ORDERED: DEXTROSE 50%-WATER 25 GM/50 ML DISP.SYRIN IV PRN ×2 (18:16)
[2019-11-27] MEDS ORDERED: GLUCAGON,HUMAN RECOMB 1 MG INJ SUBCUT PRN (18:16)
[2019-11-27] MEDS ORDERED: MAG HYDROX/AL HYDROX/SIMETH SUSP 30 ML UDCUP PO PRN (18:16)
[2019-11-27 18:25] LABS: ABSOLUTE BASOPHILS # (AUTO) 0.1 10^3/uL (0.0-0.2); ABSOLUTE EOSINOPHILS # (AUTO) 0.1 10^3/uL (0.0-0.6); ABSOLUTE LYMPHOCYTES (AUTO) 1.8 10^3/uL (0.5-4.7); ABSOLUTE MONOCYTES (AUTO) 0.7 10^3/uL (0.1-1.4); ABSOLUTE NEUT (AUTO) 5.1 10^3/uL (1.7-8.2); BASOPHILS % (AUTO) 1.3 % (0-2); EOSINOPHILS % (AUTO) 0.9 % (0-6); HEMATOCRIT 28.2 % (37.9-51.0); HEMOGLOBIN 9.6 g/dL (13.5-17.0); MEAN CORPUSCULAR HEMOGLOBIN 33.2 pg (27.0-33.4); MEAN CORPUSCULAR HGB CONC 34.2 g/dL (32.0-36.0); MEAN CORPUSCULAR VOLUME 97 fl (80-97); MONOCYTES % (AUTO) 9.4 % (3-13); PLATELET COUNT 170 10^3/uL (150-450); RED BLOOD COUNT 2.91 10^6/uL (4.35-5.55); RED CELL DISTRIBUTION WIDTH 14.4 % (11.5-14.0); SEGMENTED NEUTROPHILS % (AUTO) 65.4 % (42-78); TOTAL CELLS COUNTED % (AUTO) 100 %; WHITE BLOOD COUNT 7.8 10^3/uL (4.0-10.5)
[2019-11-27] MEDS ORDERED: OXYCODONE HCL IR 5 MG TABLET PO PRN (18:29)
[2019-11-27] MEDS ORDERED: ACETAMINOPHEN 325 MG TABLET PO PRN (18:30)
[2019-11-27] MEDS ORDERED: TRAMADOL HCL 50 MG TABLET PO PRN (18:32)
[2019-11-27] MEDS ORDERED: VANCOMYCIN HCL INJ 1000 MG VIAL IV ONE (18:35)
[2019-11-27 18:44] LABS: ALBUMIN 3.1 g/dL (3.5-5.0); ALKALINE PHOSPHATASE 58 U/L (38-126); ANION GAP 7 (5-19); ASPARTATE AMINO TRANSFERASE 22 U/L (17-59); BILIRUBIN,TOTAL 0.6 mg/dL (0.2-1.3); BLOOD UREA NITROGEN 16 mg/dL (7-20); CALCIUM 8.7 mg/dL (8.4-10.2); CARBON DIOXIDE 30 mmol/L (22-30); CHLORIDE 95 mmol/L (98-107); GLUCOSE 111 mg/dL (75-110); POTASSIUM 3.3 mmol/L (3.6-5.0); TOTAL PROTEIN 5.8 g/dL (6.3-8.2)
[2019-11-27] MEDS ORDERED: TRANEXAMIC ACID INJ/PF 1,000 MG/10 ML SDV IV SCH (18:45)
[2019-11-27] MEDS ORDERED: VANCOMYCIN HCL 1,500 MG in DEXTROSE 5%-WATER 250 ML IV PRN (18:56)
[2019-11-27] MEDS ORDERED: TAMSULOSIN HCL 0.4 MG CAP.SR.24H PO ONE (19:00)
[2019-11-27] MEDS: OXYCODONE HCL IR 5 MG TABLET PO PRN (20:15)
[2019-11-27 20:27] LABS: INTERNATIONAL RATION (INR) 1.02; PROTHROMBIN TIME 13.4 SEC (11.4-15.4)
[2019-11-27] MEDS: CEFAZOLIN 2 GM/D5W RTU 2 GM/50 ML RTUPB IV SCH (22:00)
[2019-11-27] MEDS: KETOROLAC TROMETHAMINE INJ/PF 30 MG/1 ML SDV IV SCH (22:20)
[2019-11-27] MEDS: OXYCODONE HCL SR 10 MG TABLET PO SCH (22:24)
[2019-11-27] MEDS: GABAPENTIN 300 MG CAPSULE PO SCH (22:25)
[2019-11-27] MEDS: ATORVASTATIN CALCIUM 20 MG TABLET PO SCH (22:25)
[2019-11-27] MEDS: MORPHINE SULFATE 10 MG/ML INJ IV PRN (23:56)
--- NOTE | 2019-11-28 01:06 | RADIOLOGY REPORT (SQ) ---
EXAM: CT Right Lower Extremity Without Intravenous Contrast EXAM DATE/TIME: 11/28/2019 12:23 AM CLINICAL HISTORY: The patient is 63 years old and is Male; Pre-op, right PAGE fracture TECHNIQUE: Axial computed tomography images of the right hip without intravenous contrast. Sagittal and coronal reformatted images were created and reviewed. This CT exam was performed using one or more of the following dose reduction techniques: automated exposure control, adjustment of the mA and/or kV according to patient size, and/or use of iterative reconstruction technique. COMPARISON: Radiographs of the right hip from 10/11/2019 FINDINGS: ARTIFACTS: There is streak artifact related to bilateral hip prostheses. This limits evaluation of the osseous structures and soft tissues immediately adjacent to the prosthesis. BONES/JOINTS: Right total hip arthroplasty in place. No dislocation. There is an acute, comminuted and mildly displaced fracture of the right proximal femur which involves the greater trochanter, subtrochanteric region, and proximal femoral diaphysis to the level of the inferior femoral stem. No additional acute fractures visualized. Degenerative and postsurgical changes noted in the lower lumbar spine. SOFT TISSUES: Small bilateral fat-containing inguinal hernias. There is mild subcutaneous edema about the anterior aspect of the right proximal thigh. VASCULATURE: Atherosclerotic calcifications. IMPRESSION: Acute, comminuted fracture of the right proximal femur which involves the greater trochanter, subtrochanteric region, and proximal femoral diaphysis.
[2019-11-28] MEDS: ZOLPIDEM TARTRATE 5 MG TABLET PO PRN (02:05)
[2019-11-28] MEDS: PANTOPRAZOLE SODIUM 20 MG TABLET.DR PO SCH (05:44)
[2019-11-28] MEDS: MORPHINE SULFATE 10 MG/ML INJ IV PRN (05:51)
[2019-11-28] MEDS: KETOROLAC TROMETHAMINE INJ/PF 30 MG/1 ML SDV IV SCH ×3 (05:51→22:28)
[2019-11-28] MEDS: CEFAZOLIN 2 GM/D5W RTU 2 GM/50 ML RTUPB IV SCH ×3 (05:52→22:28)
[2019-11-28] MEDS ORDERED: DIPHENHYDRAMINE HCL 25 MG CAPSULE PO PRN (08:12)
--- NOTE | 2019-11-28 08:21 | PDOC H&P ---
History of Present Illness Admission Date/PCP: 11/27/19 17:00 History of Present Illness: JUDITH COLLAZO is a 63 year old male patient with CHF, COPD, chronic smoker smoker, history of sleep apnea, bipolar disorder, CAD with prior stent placement, hyperlipidemia and recent right total hip arthroplasty presents to [facility] as a transfer from [facility] due to a recent fall and a periprosthetic right femur fracture. He denies presyncopal symptoms, denies associated injury such as head injury, denies loss of consciousness. Reports that he slipped on a wet sort of bricks and fell landing on his right hip directly subsequently having severe 10 out of 10 pain that prevented him from being able to stand or move his right leg. He was transferred that family hospitalization x-ray and found a periprosthetic right femur fracture about the femoral stem. Since that time he has been there on pain medication and transferred here for surgical management. He denies any other associated symptoms. Pain is described as severe, searing aching, 10 out of 10, improved with pain medication, worse with activity or any attempted range of motion. Denies right lower extremity distal paresthesia or numbness or loss of motor function. Past Medical History Cardiac Medical History: Reports: Hyperlipidema, Hypertension Denies: Coronary Artery Disease, Myocardial Infarction Pulmonary Medical History: Denies: Asthma, Bronchitis, Chronic Obstructive Pulmonary Disease (COPD), Sleep Apnea Neurological Medical History: Denies: Seizures Endocrine Medical History: Denies: Hyperthyroidism, Hypothyroidism GI Medical History: Denies: Gastroesophageal Reflux Disease Musculoskeltal Medical History: Reports: Arthritis Denies: Fibromyalgia Psychiatric Medical History: Reports: Depression Denies: Bipolar Disorder, Post Traumatic Stress Disorder Hematology: Denies: Anemia Past Surgical History Past Surgical History: Reports: Appendectomy Denies: Cholecystectomy, Coronary Artery Bypass Graft, Gastric Bypass Surgery, Herniorrhaphy, Pacemaker, Tonsillectomy Social History Smoking Status: Current Every Day Smoker Electronic Cigarette use?: No Frequency of Alcohol Use: Occasional Hx Recreational Drug Use: No Drugs: None Hx Prescription Drug Abuse: No - Advance Directive Resuscitation Status: Full Code Family History Parental Family History Reviewed: No Children Family History Reviewed: NA Sibling(s) Family History Reviewed.: NA Medication/Allergy Home Medications: Atorvastatin Calcium [Lipitor 40 mg Tablet] 40 mg PO DAILY 07/18/19 Diazepam [Valium 5 mg Tablet] 5 mg PO BID 07/18/19 Duloxetine HCl [Cymbalta 30 mg Capsule.dr] 30 mg PO DAILY 07/18/19 Gabapentin 600 mg PO BID 07/18/19 Hydrochlorothiazide [Hydrodiuril 25 mg Tablet] 25 mg PO DAILY 07/18/19 Hydrocodone/Acetaminophen [[place] 10-325 mg Tablet] 1 tab PO 5XDP PRN 07/18/19 Losartan Potassium 100 mg PO DAILY 07/18/19 Omeprazole 40 mg PO BID 07/18/19 Tamsulosin HCl [Flomax] 0.4 mg PO DAILY 07/18/19 Aspirin [Aspirin 325 mg Tablet] 325 mg PO DAILY tablet 10/12/19 Hydrochlorothiazide [Hydrodiuril 25 mg Tablet] 25 mg PO DAILY tablet 10/12/19 Celecoxib 100 mg PO BID 11/27/19 Diphenhydramine HCl [Benadryl 25 mg Capsule] 25 mg PO Q6HP PRN 11/27/19 Allergies/Adverse Reactions: amlodipine Adverse Reaction (Verified 10/11/19 08:16) Review of Systems Review of Systems: Constitutional: ABSENT: anorexia, chills, night sweats Cardiovascular: ABSENT: chest pain Respiratory: ABSENT: dyspnea Gastrointestinal: ABSENT: vomiting Genitourinary: ABSENT: dysuria Integumentary: ABSENT: rash Neurological: ABSENT: confusion, memory loss, numbness Psychiatric: ABSENT: hallucinations Hematologic/Lymphatic: ABSENT: easy bleeding Physical Exam Vital Signs: Temp Pulse Resp BP Pulse Ox 99.4 F 83 18 107/85 93 11/27/19 23:21 11/27/19 23:21 11/27/19 23:21 11/27/19 23:21 11/27/19 23:21 Intake & Output 11/27/19 11/28/19 11/29/19 06:59 06:59 06:59 Intake Total 100 Output Total 1260 Balance -1160 Weight 110.6 kg Physical Exam: General appearance: PRESENT: no acute distress, cooperative, well-nourished Head exam: PRESENT: atraumatic, normocephalic Eye exam: PRESENT: EOMI Ear exam: PRESENT: normal external ear exam Mouth exam: PRESENT: neck supple Neck exam: ABSENT: tracheal deviation Respiratory exam: PRESENT: symmetrical, unlabored. ABSENT: accessory muscle use, wheezes Pulses: PRESENT: normal radial pulses, normal dorsalis pedis pulse Vascular exam: PRESENT: normal capillary refill GI/Abdominal exam: ABSENT: distended, firm Extremities exam: PRESENT: full ROM of bilateral shoulders, elbows wrists, knees, hips and ankles without pain Musculoskeletal exam: PRESENT: full ROM, normal inspection of all 4 extremities aside from that noted below. Neurological exam: PRESENT: alert, awake, oriented to person, oriented to place, oriented to time Psychiatric exam: PRESENT: appropriate affect. ABSENT: agitated Focused psych exam: ABSENT: catatonic Skin exam: PRESENT: intact. ABSENT: dry All as above aside from that noted in the HPI and the following: Right lower extremity -Pulses 2+ distally -Compartments soft -Sensation grossly intact to L3-4-5 S1 -Motor grossly intact to EHL TA gastroc and quad -Right lower extremity shortened, externally rotated, swollen. Prior incision is well-healed Results Laboratory Results: 11/27/19 17:50 11/27/19 17:50 11/27/19 11/27/19 11/27/19 17:50 17:50 17:50 WBC 7.8 RBC 2.91 L Hgb 9.6 L Hct 28.2 L MCV 97 MCH 33.2 MCHC 34.2 RDW 14.4 H Plt Count 170 Seg Neutrophils % 65.4 Sodium 131.9 L Potassium 3.3 L Chloride 95 L Carbon Dioxide 30 Anion Gap 7 BUN 16 Creatinine 0.97 Cancelled Est GFR ( Amer) > 60 Cancelled Est GFR (Non-Af Amer) Cancelled Glucose 111 H Calcium 8.7 Magnesium 1.9 Total Bilirubin 0.6 AST 22 Alkaline Phosphatase 58 Total Protein 5.8 L Albumin 3.1 L Impressions: Lower Extremity CT 11/28/19 00:00 IMPRESSION: Acute, comminuted fracture of the right proximal femur which involves the greater trochanter, subtrochanteric region, and proximal femoral diaphysis. Assessment & Plan - Diagnosis (1) Status post total replacement of right hip Is this a current diagnosis for this admission?: Yes (2) Periprosthetic fracture around internal prosthetic right hip joint Is this a current diagnosis for this admission?: Yes Plan: Plan for OR today Hold all chemical anticoagulation Keep n.p.o. Bedrest Multimodal pain control Ancef on-call TXA on-call 1 g pre-and 1 g postoperatively Recommend anesthesia provide epidural anesthesia to transporting patient in the operating room - Time Anticipated Discharge Disposition: Home with Home Health Anticipated Discharge: within 72 hours
--- NOTE | 2019-11-28 08:36 | EKG REPORT ---
SEVERITY:- NORMAL ECG - SINUS RHYTHM : Confirmed by: Greer Anne MD 28-Nov-2019 08:34:56
[2019-11-28] MEDS ORDERED: HYDROMORPHONE HCL INJ/PF 2 MG/ML AMPULE IV PRN (08:45)
[2019-11-28] MEDS ORDERED: DULOXETINE HCL 30 MG CAPSULE.DR PO SCH (10:00)
[2019-11-28] MEDS ORDERED: MIDAZOLAM 2 MG/2 ML INJ ONE (11:40)
[2019-11-28] MEDS ORDERED: ONDANSETRON HCL INJ/PF 4 MG/2 ML SDV ONE (11:40)
[2019-11-28] MEDS ORDERED: FENTANYL CITRATE INJ/PF 100 MCG/2 ML AMPUL ONE ×2 (11:40→17:26)
[2019-11-28] MEDS ORDERED: PROPOFOL INJ 200 MG/20 ML VIAL IV ONE ×2 (11:40→14:38)
[2019-11-28] MEDS ORDERED: VANCOMYCIN HCL INJ 1000 MG VIAL ONE (11:56)
[2019-11-28] MEDS ORDERED: KETOROLAC TROMETHAMINE INJ/PF 30 MG/1 ML SDV ONE (11:56)
[2019-11-28] MEDS ORDERED: BUPIVACAINE HCL 0.25 % INJ/PF (2.5 MG/1 ML) 30 ML VIAL ONE (11:56)
[2019-11-28] MEDS ORDERED: LIDOCAINE 2% INJ (20 MG/ML) 20 ML MDV ONE (12:00)
[2019-11-28] MEDS ORDERED: BUPIVACAINE HCL/DEX-WATER/PF 15 MG/2 ML AMPULE ONE (12:01)
[2019-11-28] MEDS ORDERED: KETAMINE HCL INJ 500 MG/10 ML VIAL ONE (12:14)
[2019-11-28] MEDS ORDERED: MORPHINE SULFATE 10 MG/ML INJ IV PRN (13:04)
[2019-11-28] MEDS ORDERED: PROMETHAZINE HCL INJ 25 MG/1 ML VIAL IV PRN ×2 (13:04→16:43)
[2019-11-28] MEDS ORDERED: FENTANYL CITRATE INJ/PF 100 MCG/2 ML AMPUL IV PRN ×6 (13:04→16:43)
[2019-11-28] MEDS ORDERED: DIPHENHYDRAMINE HCL 50 MG/ML VIAL IV PRN ×2 (13:04→16:43)
[2019-11-28] MEDS ORDERED: CEFAZOLIN INJ 1 GM VIAL ONE (14:03)
[2019-11-28] MEDS: LOSARTAN POTASSIUM 50 MG TABLET PO SCH (14:43)
[2019-11-28] MEDS: DULOXETINE HCL 30 MG CAPSULE.DR PO SCH (14:43)
[2019-11-28] MEDS: DOCUSATE SODIUM 100 MG CAPSULE PO SCH (14:43)
[2019-11-28] MEDS: NICOTINE 21 MG/24 HR PATCH.TD24 TD SCH (14:44)
[2019-11-28] MEDS: GABAPENTIN 300 MG CAPSULE PO SCH ×2 (14:44→22:29)
[2019-11-28] MEDS: OXYCODONE HCL SR 10 MG TABLET PO SCH ×2 (14:44→22:29)
[2019-11-28] MEDS: FUROSEMIDE 40 MG TABLET PO SCH (14:44)
[2019-11-28] MEDS ORDERED: LIDOCAINE 1% INJ-PF (10 MG/ML) 30 ML SDV ONE (15:26)
--- NOTE | 2019-11-28 16:07 | RADIOLOGY REPORT (SQ) ---
EXAM DESCRIPTION: NO CHG FLUORO; HIP IN OPERATING RM IMAGES COMPLETED DATE/TIME: 11/28/2019 3:45 pm REASON FOR STUDY: RIGHT HIP ORIF FLUOROSCOPY TIME: 0.2 minutes 0 5 Images saved to PACS TECHNIQUE: Intra-operative images acquired during surgical procedure to evaluate progress. NUMBER OF IMAGES: 5 LIMITATIONS: None. FINDINGS: Limited intraoperative fluoroscopic images demonstrate evidence of right femoral fixation. Please see operative report for detailed description. IMPRESSION: IMAGE(S) OBTAINED DURING PROCEDURE. COMMENT: Quality ID [id number]: Final reports for procedures using fluoroscopy that document radiation exp osure indices, or exposure time and number of fluorographic images (if radiation exposure indices are not available) Please consult full operative report of the attending physician for description of the procedure. TECHNICAL DOCUMENTATION: JOB ID: [id number] 2010 [employer]- All Rights Reserved COMPARISON: None. 11/28/2019 Reading location - IP/workstation name: [email or web address]
--- NOTE | 2019-11-28 16:07 | RADIOLOGY REPORT (SQ) ---
EXAM DESCRIPTION: NO CHG FLUORO; HIP IN OPERATING RM IMAGES COMPLETED DATE/TIME: 11/28/2019 3:45 pm REASON FOR STUDY: RIGHT HIP ORIF FLUOROSCOPY TIME: 0.2 minutes 0 5 Images saved to PACS TECHNIQUE: Intra-operative images acquired during surgical procedure to evaluate progress. NUMBER OF IMAGES: 5 LIMITATIONS: None. FINDINGS: Limited intraoperative fluoroscopic images demonstrate evidence of right femoral fixation. Please see operative report for detailed description. IMPRESSION: IMAGE(S) OBTAINED DURING PROCEDURE. COMMENT: Quality ID [id number]: Final reports for procedures using fluoroscopy that document radiation exp osure indices, or exposure time and number of fluorographic images (if radiation exposure indices are not available) Please consult full operative report of the attending physician for description of the procedure. TECHNICAL DOCUMENTATION: JOB ID: [id number] 2010 [employer]- All Rights Reserved COMPARISON: None. 11/28/2019 Reading location - IP/workstation name: [email or web address]
[2019-11-28] MEDS ORDERED: ROPIVACAINE HCL 0.5% INJ/PF (5 MG/1 ML) 30 ML SDV ONE (16:36)
--- NOTE | 2019-11-28 16:40 | Operative Report ---
Operative Report DATE OF SURGERY: 11/28/19 PREOPERATIVE DIAGNOSIS: Right hip periprosthetic femur fracture POSTOPERATIVE DIAGNOSIS: Right hip periprosthetic femur fracture OPERATION: Right total hip arthroplasty femoral revision SURGEON: NOELLE BECERRA JR ANESTHESIA: Epidural COMPLICATIONS: None ESTIMATED BLOOD LOSS: 500 cc PROCEDURE: The patient was brought to the operating suite and answered to the operating table. He received a spinal anesthetic with an epidural. Following adequate analgesia the patient received 2 g of Ancef and 1 g of vancomycin. The right lower extremity was prepped and draped in standard sterile fashion. The prior incision was marked. A timeout was performed. Incision was made through the prior incision and extended both distally and proximally to allow for adequate exposure to the proximal femur. This was extended slowly laterally through the IT band and to allow for reflecting the vastus lateralis superiorly. We used fluoroscopy to evaluate the distal end of the fracture site and placed two cables distally using extreme care to stay on bone as we passed the cable passer. After this we turned our attention proximally. The prior exposure was used to make a direct anterior approach into the hip joint. A Cobra space superiorly to allow for visualization of the femoral acetabular joint. The femoral stem and been retroverted and the femoral head was still reduced within the joint. We placed a bone hook to dislocate the hip and then externally rotate the leg. A stem extractor was screwed into the superior aspect of the stem followed by removal. After this we then internally rotated the leg to allow for fracture reduction. 2 cables were passed just distal to the lesser trochanter again using extreme care when passing the cable passer remain on bone throughout the circumference. Fluoroscopy was used to ensure anatomic reduction of the fracture. This point we were able to expose the proximal femur to allow for reaming. We reamed until we were able to obtain scratch fit with a 15 mm 195 length taoist modular hip stem. We then copiously irrigated the canal followed by drying followed by impaction of the stem. Upon firm seating we then overreamed for the proximal body which obtained good bony fit at a 21 mm width. We then placed a trial proximal body of 100 mm and a -5 length ball was placed. The version was based on approximately 5 degrees anteverted to the calcar. Upon attempted reduction this was relatively tight and we decided to remove the 100 mm proximal body and replace it with a 90. This in combination with a standard ball allowed for excellent stability throughout range of motion and near equal leg lengths. There is no appreciable impingement however on x-ray review there was some proximity to the femur and the acetabulum and I desired more offset. We decided to proceed with a +5 mm head ball which again obtained excellent stability throughout range of motion no impingement and potentially slightly long leg length on the right, maybe 2 mm. Final implants were chosen followed by copious irrigation of both acetabulum and the femur and then drying of the stem trunnion with a sponge. After this the real proximal body was impacted followed by tightening with a torque wrench in the same version as the trial. We then impacted a +5 ball onto the neck and reduced the hip. This produced excellent stability. We then evaluated the wound for any potential overt bleeding and used Bovie cautery to mitigate. After this the wound was irrigated warmer time followed by suctioning all excess fluid and applying 1 g of vancomycin to the wound. The deep layer of fascia was closed with a #2 Quill followed by subsequent #2 Quill in the more superficial layer of fascia, followed by a 2 oh barbed Monocryl in the subdermal tissue followed by a 3-0 nylon superficial horizontal mattress running stitch. After this a negative pressure wound dressing was applied. Throughout the procedure dilute Betadine irrigation was used as well as Bovie cautery to obtain meticulous hemostasis. Unfortunately the patient has a history of cardiac stents and anesthesia preferred not to provide TXA so he was still Rickreall in regards to blood loss. The patient was then awakened from anesthesia and transferred to PACU in stable condition, no complications.
[2019-11-28] MEDS ORDERED: OXYCODONE-ACETAMINOPHEN 5-325 MG TABLET PO PRN (16:43)
[2019-11-28] MEDS ORDERED: ONDANSETRON HCL INJ/PF 4 MG/2 ML SDV IV PRN (16:43)
--- NOTE | 2019-11-28 17:19 | RADIOLOGY REPORT (SQ) ---
EXAM DESCRIPTION: HIP RIGHT AP/LATERAL IMAGES COMPLETED DATE/TIME: 11/28/2019 5:08 pm REASON FOR STUDY: post op COMPARISON: 10/11/2019 NUMBER OF VIEWS: Two views. TECHNIQUE: AP pelvis and additional frog-leg view of the right hip. LIMITATIONS: None. FINDINGS: Postoperative images show a total hip replacement in good position. 4 wires have been bony rebekah around the proximal femur. IMPRESSION: Postop images. Refer to operative note for further information. TECHNICAL DOCUMENTATION: JOB ID: [id number] 2010 [employer]- All Rights Reserved Reading location - IP/workstation name: [email or web address]
[2019-11-28 18:32] LABS: HEMATOCRIT 23.5 % (37.9-51.0); MEAN CORPUSCULAR HEMOGLOBIN 33.1 pg (27.0-33.4); MEAN CORPUSCULAR HGB CONC 34.1 g/dL (32.0-36.0); MEAN CORPUSCULAR VOLUME 97 fl (80-97); PLATELET COUNT 194 10^3/uL (150-450); RED BLOOD COUNT 2.43 10^6/uL (4.35-5.55); RED CELL DISTRIBUTION WIDTH 14.1 % (11.5-14.0); WHITE BLOOD COUNT 12.5 10^3/uL (4.0-10.5)
--- NOTE | 2019-11-28 18:35 | PDOC PROGRESS REPORT ---
Subjective Progress Note for:: 11/28/19 Subjective:: Medicine consultation at the request of orthopedic surgery for management of chronic medical problems. Patient admitted to orthopedics for right periprosthetic leg fracture after a fall. Patient is doing quite well today and his vitals and laboratory values also support that he is optimized for any surgical procedures that the primary physician as planned. As always, it was explained to the patient and family that no surgery is without risk but will make sure he is optimized for his surgery to reduce the risk as much as possible. Medications continue. Other than right leg pain, patient does not have any new complaints. Reason For Visit: RIGHT HIP PERIPROSTHETIC FRACTURE Physical Exam Vital Signs: Temp Pulse Resp BP Pulse Ox 97.5 F 68 16 98/50 L 98 11/28/19 16:13 11/28/19 16:28 11/28/19 16:28 11/28/19 16:28 11/28/19 16:28 Intake & Output 11/27/19 11/28/19 11/29/19 06:59 06:59 06:59 Intake Total 100 1300 Output Total 1260 500 Balance -1160 800 Weight 110.6 kg General appearance: PRESENT: no acute distress, well-developed, well-nourished Head exam: PRESENT: atraumatic, normocephalic Eye exam: PRESENT: conjunctiva pink Mouth exam: PRESENT: moist Respiratory exam: PRESENT: clear to auscultation tamiko. ABSENT: rales, rhonchi, wheezes Cardiovascular exam: PRESENT: RRR. ABSENT: diastolic murmur, rubs, systolic murmur GI/Abdominal exam: PRESENT: normal bowel sounds, soft. ABSENT: distended, guarding, mass, organolmegaly, rebound, tenderness Extremities exam: PRESENT: tenderness - Right leg significantly tender around periprosthetic fracture Neurological exam: PRESENT: alert, awake, oriented to person, oriented to place, oriented to time, oriented to situation Psychiatric exam: PRESENT: appropriate affect, normal mood Skin exam: PRESENT: dry, intact, warm Results Laboratory Results: 11/27/19 17:50 11/27/19 11/27/19 11/27/19 17:50 17:50 17:50 WBC 7.8 RBC 2.91 L Hgb 9.6 L Hct 28.2 L MCV 97 MCH 33.2 MCHC 34.2 RDW 14.4 H Plt Count 170 Seg Neutrophils % 65.4 Sodium 131.9 L Potassium 3.3 L Chloride 95 L Carbon Dioxide 30 Anion Gap 7 BUN 16 Creatinine 0.97 Cancelled Est GFR ( Amer) > 60 Cancelled Est GFR (Non-Af Amer) Cancelled Glucose 111 H Calcium 8.7 Magnesium 1.9 Total Bilirubin 0.6 AST 22 Alkaline Phosphatase 58 Total Protein 5.8 L Albumin 3.1 L Blood Type Antibody Screen 11/28/19 14:24 WBC RBC Hgb Hct MCV MCH MCHC RDW Plt Count Seg Neutrophils % Sodium Potassium Chloride Carbon Dioxide Anion Gap BUN Creatinine Est GFR ( Amer) Est GFR (Non-Af Amer) Glucose Calcium Magnesium Total Bilirubin AST Alkaline Phosphatase Total Protein Albumin Blood Type B POSITIVE Antibody Screen NEGATIVE Impressions: Fluoroscopy 11/28/19 00:00 IMPRESSION: IMAGE(S) OBTAINED DURING PROCEDURE. Hip X-Ray 11/28/19 00:00 IMPRESSION: IMAGE(S) OBTAINED DURING PROCEDURE. Hip/Pelvis X-Ray 11/28/19 00:00 IMPRESSION: Postop images. Refer to operative note for further information. Lower Extremity CT 11/28/19 00:00 IMPRESSION: Acute, comminuted fracture of the right proximal femur which involves the greater trochanter, subtrochanteric region, and proximal femoral diaphysis. Assessment and Plan - Diagnosis (1) Periprosthetic fracture around internal prosthetic right hip joint Is this a current diagnosis for this admission?: Yes Plan: Surgical planning per orthopedics Hold all chemical anticoagulation Bedrest Multimodal pain control Ancef on-call TXA on-call 1 g pre-and 1 g postoperatively Orthopedic surgery following as primary (2) CHF (congestive heart failure) Is this a current diagnosis for this admission?: No Plan: 11/19/2019 -Not in acute exacerbation, no echocardiogram on file here, patient appears well compensated Medications continue (3) Fall Is this a current diagnosis for this admission?: Yes (4) HTN (hypertension) Is this a current diagnosis for this admission?: No Plan: -No need for IV hydralazine for blood pressure control Treat blood pressure with oral medications as appropriate (5) Tobacco abuse Is this a current diagnosis for this admission?: No (6) Status post total replacement of right hip Is this a current diagnosis for this admission?: Yes - Time Time Spent with patient: 15-24 minutes Medications reviewed and adjusted accordingly: Yes Anticipated Discharge Disposition: Assisted Facility Anticipated Discharge Timeframe: within 72 hours - Inpatient Certification Based on my medical assessment, after consideration of the patient's comorbiditi es, presenting symptoms, or acuity I expect that the services needed warrant INPATIENT care.: Yes I certify that my determination is in accordance with my understanding of [facility]'s requirements for reasonable and necessary INPATIENT services [42 CFR 412.3e].: Yes Medical Necessity: Significant Comorbidiites Make Outpatient Treatment Too Risky, Need Close Monitoring Due to Risk of Patient Decompensation, Risk of Complication if Not Cared For in Hospital, Risk of Diagnosis Which Will Require Inpatient Eval/Care/Monitoring
[2019-11-28] MEDS: ATORVASTATIN CALCIUM 20 MG TABLET PO SCH (22:29)
[2019-11-28] MEDS: ASPIRIN 325 MG TABLET PO SCH (22:30)
--- NOTE | 2019-11-28 22:42 | XCELERA REPORT ---
[address] [address] Transthoracic Echocardiogram Report Name: JUDITH COLLAZO Age: 63 yrs Gender: Male : 1955 Patient Status: Inpatient Patient Location: [address] [place] [address] Study Date: 11/28/2019 10:21 AM Height: 70 in Weight: 243 lb BSA: 2.3 m2 Procedure: A two-dimensional transthoracic echocardiogram with color flow and Doppler was performed. The study was technically limited with all images being suboptimal in quality. Reason For Study: chf History: CHF. Ordering Physician: DEMARCUS SMITH Performed By: Charlotte Mistry Interpretation Summary CHF The left ventricle is normal in size. There is mild concentric left ventricular hypertrophy. LV EF is 65% Left ventricular systolic function is normal. Doppler measurements suggest impaired left ventricular relaxation, which is associated with grade I/IV or mild diastolic dysfunction The left ventricular wall motion is normal. There is no thrombus. No ASD ,VSD , or PFO seen. The right ventricle is not well visualized secondary to technical limitations The right atrium is normal. Right atrium not well visualized secondary to technical limitations The left atrium is mildly dilated. There is no evidence of mitral valve prolapse. There is no vegetation seen on the mitral valve. There is no mitral valve stenosis. There is no mitral regurgitation noted. There is no aortic valvular vegetation. There is no aortic valve stenosis There is no LVOT obstruction. No aortic regurgitation is present. There is no tricuspid stenosis. There is a trace amount of tricuspid regurgitation There is mild pulmonary hypertension by echo RVSP is 34 to 39 mm of Hg , with RA mean of 5 to 10. There is no pulmonic valvular stenosis. There is no pulmonic valvular regurgitation. The aortic root is normal size. The inferior vena cava appeared normal and decreased > 50% with respiration (RAP 5-10 mmHg) There is no pericardial effusion. MMode/2D Measurements & Calculations RVDd: 3.7 cm LVIDd: 5.1 cm FS: 37.4 % Ao root diam: 3.0 cm IVSd: 1.2 cm LVIDs: 3.2 cm EDV(Teich): 123.6 ml Ao root area: 7.1 cm2 LVPWd: 1.2 cm ESV(Teich): 40.7 ml LA dimension: 4.2 cm EF(Teich): 67.1 % Doppler Measurements & Calculations MV E max moe: MV P1/2t max moe: Ao V2 max: LV V1 max P.6 cm/sec 72.1 cm/sec 154.1 cm/sec 7.3 mmHg MV A max moe: MV P1/2t: 79.0 msec Ao max P.5 mmHg LV V1 max: 81.9 cm/sec MVA(P1/2t): 2.8 cm2 134.8 cm/sec MV E/A: 0.87 MV dec slope: 267.3 cm/sec2 MV dec time: 0.27 sec PA V2 max: TR max moe: MV P1/2t-pr_phl: 96.3 cm/sec 268.8 cm/sec 79.0 msec PA max PG: TR max P.9 mmHg 3.7 mmHg Left Ventricle The left ventricle is normal in size. There is mild concentric left ventricular hypertrophy. LV EF is 65%. Left ventricular systolic function is normal. Doppler measurements suggest impaired left ventricular relaxation, which is associated with grade I/IV or mild diastolic dysfunction. The left ventricular wall motion is normal. There is no thrombus. No ASD ,VSD , or PFO seen. Right Ventricle The right ventricle is not well visualized secondary to technical limitations. Atria The right atrium is normal. Right atrium not well visualized secondary to technical limitations. The left atrium is mildly dilated. Mitral Valve There is no evidence of mitral valve prolapse. There is no vegetation seen on the mitral valve. There is no mitral valve stenosis. There is no mitral regurgitation noted. Aortic Valve There is no aortic valvular vegetation. There is no aortic valve stenosis. There is no LVOT obstruction. No aortic regurgitation is present. Tricuspid Valve There is no tricuspid stenosis. There is a trace amount of tricuspid regurgitation. There is mild pulmonary hypertension by echo. RVSP is 34 to 39 mm of Hg , with RA mean of 5 to 10. Pulmonic Valve There is no pulmonic valvular stenosis. There is no pulmonic valvular regurgitation. Great Vessels The aortic root is normal size. The inferior vena cava appeared normal and decreased > 50% with respiration (RAP 5-10 mmHg). Effusions There is no pericardial effusion. : DEMARCUS SMITH Lakshmi
[2019-11-28] MEDS: HYDROMORPHONE HCL INJ/PF 2 MG/ML AMPULE IV PRN (23:45)
[2019-11-29] MEDS: HYDROMORPHONE HCL INJ/PF 2 MG/ML AMPULE IV PRN ×3 (02:53→10:16)
[2019-11-29] MEDS: CEFAZOLIN 2 GM/D5W RTU 2 GM/50 ML RTUPB IV SCH (05:57)
[2019-11-29] MEDS: PANTOPRAZOLE SODIUM 20 MG TABLET.DR PO SCH (05:57)
[2019-11-29] MEDS: KETOROLAC TROMETHAMINE INJ/PF 30 MG/1 ML SDV IV SCH ×3 (05:57→22:37)
[2019-11-29] MEDS: NICOTINE 21 MG/24 HR PATCH.TD24 TD SCH (09:59)
[2019-11-29] MEDS: LOSARTAN POTASSIUM 50 MG TABLET PO SCH (09:59)
[2019-11-29] MEDS: HYDROCHLOROTHIAZIDE 25 MG TABLET PO SCH (10:06)
[2019-11-29] MEDS: GABAPENTIN 300 MG CAPSULE PO SCH ×2 (10:06→22:37)
[2019-11-29] MEDS: ASPIRIN 325 MG TABLET PO SCH (10:06)
[2019-11-29] MEDS: DOCUSATE SODIUM 100 MG CAPSULE PO SCH (10:07)
[2019-11-29] MEDS: FUROSEMIDE 40 MG TABLET PO SCH (10:07)
[2019-11-29] MEDS: DULOXETINE HCL 30 MG CAPSULE.DR PO SCH (10:07)
[2019-11-29] MEDS: OXYCODONE HCL SR 10 MG TABLET PO SCH ×2 (10:07→22:37)
[2019-11-29] MEDS ORDERED: HYDROMORPHONE HCL 2 MG TABLET PO PRN (11:24)
--- NOTE | 2019-11-29 13:02 | PDOC PROGRESS REPORT ---
Subjective Progress Note for:: 11/29/19 Subjective:: Doing well this morning. Pain currently controlled. No acute complications or overnight events. Reason For Visit: RIGHT HIP PERIPROSTHETIC FRACTURE Physical Exam Vital Signs: Temp Pulse Resp BP Pulse Ox 98.2 F 88 18 122/63 98 11/28/19 23:31 11/28/19 23:31 11/28/19 23:31 11/28/19 23:31 11/28/19 23:31 Intake & Output 11/28/19 11/29/19 11/30/19 06:59 06:59 06:59 Intake Total 100 3000 Output Total 1260 700 Balance -1160 2300 Weight 110.6 kg 110.6 kg Physical Exam: No acute distress alert and oriented x3 Right lower extremity -Pulses 2+ distally -Compartments soft -Sensation grossly intact to L3-4-5 S1 -Motor grossly intact to EHL TA gastroc and quad -Wound clean dry and intact Results Laboratory Results: 11/28/19 18:18 11/27/19 17:50 11/28/19 11/28/19 14:24 18:18 WBC 12.5 H RBC 2.43 L Hgb 8.0 L Hct 23.5 L MCV 97 MCH 33.1 MCHC 34.1 RDW 14.1 H Plt Count 194 Blood Type B POSITIVE Antibody Screen NEGATIVE Impressions: Fluoroscopy 11/28/19 00:00 IMPRESSION: IMAGE(S) OBTAINED DURING PROCEDURE. Hip X-Ray 11/28/19 00:00 IMPRESSION: IMAGE(S) OBTAINED DURING PROCEDURE. Hip/Pelvis X-Ray 11/28/19 00:00 IMPRESSION: Postop images. Refer to operative note for further information. Lower Extremity CT 11/28/19 00:00 IMPRESSION: Acute, comminuted fracture of the right proximal femur which involves the greater trochanter, subtrochanteric region, and proximal femoral diaphysis. Assessment & Plan - Diagnosis (1) Status post total replacement of right hip Is this a current diagnosis for this admission?: Yes Plan: - 2 doses of Ancef postoperatively q 8 hours to complete 24 hours perioperatively -Weightbearing as tolerated, no precautions, encourage out of bed REUBEN for ADL training - PT/OT -aspirin 325 daily for DVT prophylaxis for 6 weeks -multimodal pain management to avoid excessive narcotics, including gabapentin, tramadol, Toradol, acetaminophen. -Dressing should not be removed for 7 to 10 days until seen in the office -May shower with the dressing intact, if it starts to come off she should not get the incision wet. -I would like to follow the patient my office within the next 7 to [address] at [address] [place] [address]. in [place] office #: [phone] (2) Periprosthetic fracture around internal prosthetic right hip joint Is this a current diagnosis for this admission?: Yes (3) Postoperative anemia due to acute blood loss Is this a current diagnosis for this admission?: Yes Plan: Patient's hemoglobin is low yesterday from a revision total hip surgery. Labs pending today. Will evaluate results as for potential need of transfusion. Prefer not to transfuse unless patient is symptomatic or below 7.0. - Time Time Spent with patient: Less than 15 minutes
[2019-11-29 14:36] LABS: ABSOLUTE EOSINOPHILS # (AUTO) 0.1 10^3/uL (0.0-0.6); ABSOLUTE LYMPHOCYTES (AUTO) 1.7 10^3/uL (0.5-4.7); ABSOLUTE MONOCYTES (AUTO) 0.8 10^3/uL (0.1-1.4); ABSOLUTE NEUT (AUTO) 4.2 10^3/uL (1.7-8.2); BASOPHILS % (AUTO) 0.5 % (0-2); HEMATOCRIT 18.8 % (37.9-51.0); LYMPHOCYTES % (AUTO) 25.2 % (13-45); MEAN CORPUSCULAR HEMOGLOBIN 33.6 pg (27.0-33.4); MEAN CORPUSCULAR HGB CONC 35.2 g/dL (32.0-36.0); MEAN CORPUSCULAR VOLUME 96 fl (80-97); MONOCYTES % (AUTO) 12.3 % (3-13); PLATELET COUNT 176 10^3/uL (150-450); RED BLOOD COUNT 1.97 10^6/uL (4.35-5.55); RED CELL DISTRIBUTION WIDTH 14.3 % (11.5-14.0); TOTAL CELLS COUNTED % (AUTO) 100 %; WHITE BLOOD COUNT 6.8 10^3/uL (4.0-10.5)
[2019-11-29 14:39] LABS: HEMOGLOBIN 6.6 g/dL (13.5-17.0)
[2019-11-29] MEDS ORDERED: NORMAL SALINE 250 ML IV PRN ×2 (14:48)
--- NOTE | 2019-11-29 14:52 | PDOC PROGRESS REPORT ---
Subjective Progress Note for:: 11/29/19 Subjective:: Medicine consultation at the request of orthopedic surgery for management of chronic medical problems. Patient admitted to orthopedics for right periprosthetic leg fracture after a fall. Patient is doing quite well today and his vitals and laboratory values also support that he is optimized for any surgical procedures that the primary physician as planned. As always, it was explained to the patient and family that no surgery is without risk but will make sure he is optimized for his surgery to reduce the risk as much as possible. Medications continue. Other than right leg pain, patient does not have any new complaints. 11/29/2019 Patient is to be doing fairly well today though he states his pain control could be much better. We talked for a long time about his home pain regimen. I made changes to his regimen today to get him closer to his usual home regimen of 10 mg oxycodone 5 times per day. We will do oxycodone 10 mg every 6 hours scheduled to be held if the patient is sleeping or somnolent. I have also added 1 mg of oral Dilaudid to help with longer lasting pain control. We will keep the IV Dilaudid for breakthrough pain only. Patient and his are in full agreement with this plan and we can always make adjustments later if it is not optimal. Other than the pain in his surgical site and right hip patient has no new complaints today. Reason For Visit: RIGHT HIP PERIPROSTHETIC FRACTURE Physical Exam Vital Signs: Temp Pulse Resp BP Pulse Ox 101.1 F H 95 16 89/45 L 95 11/29/19 11:43 11/29/19 11:43 11/29/19 11:43 11/29/19 11:43 11/29/19 11:43 Intake & Output 11/28/19 11/29/19 11/30/19 06:59 06:59 06:59 Intake Total 100 3000 Output Total 1260 700 Balance -1160 2300 Weight 110.6 kg 110.6 kg General appearance: PRESENT: no acute distress, well-developed, well-nourished Head exam: PRESENT: atraumatic, normocephalic Eye exam: PRESENT: conjunctiva pink Mouth exam: PRESENT: moist Respiratory exam: PRESENT: clear to auscultation tamiko. ABSENT: rales, rhonchi, wheezes Cardiovascular exam: PRESENT: RRR. ABSENT: diastolic murmur, rubs, systolic murmur GI/Abdominal exam: PRESENT: normal bowel sounds, soft. ABSENT: distended, guarding, mass, organolmegaly, rebound, tenderness Musculoskeletal exam: PRESENT: tenderness - Postsurgical pain in right hip, pitting edema Neurological exam: PRESENT: alert, awake, oriented to person, oriented to place, oriented to time, oriented to situation Psychiatric exam: PRESENT: appropriate affect, normal mood Skin exam: PRESENT: dry, intact, warm Results Laboratory Results: 11/29/19 14:25 11/27/19 17:50 11/28/19 11/28/19 11/29/19 14:24 18:18 14:25 WBC 12.5 H 6.8 RBC 2.43 L 1.97 L Hgb 8.0 L 6.6 L Hct 23.5 L 18.8 L MCV 97 96 MCH 33.1 33.6 H MCHC 34.1 35.2 RDW 14.1 H 14.3 H Plt Count 194 176 Seg Neutrophils % 61.0 Blood Type B POSITIVE Antibody Screen NEGATIVE Impressions: Fluoroscopy 11/28/19 00:00 IMPRESSION: IMAGE(S) OBTAINED DURING PROCEDURE. Hip X-Ray 11/28/19 00:00 IMPRESSION: IMAGE(S) OBTAINED DURING PROCEDURE. Hip/Pelvis X-Ray 11/28/19 00:00 IMPRESSION: Postop images. Refer to operative note for further information. Lower Extremity CT 11/28/19 00:00 IMPRESSION: Acute, comminuted fracture of the right proximal femur which involves the greater trochanter, subtrochanteric region, and proximal femoral diaphysis. Assessment and Plan - Diagnosis (1) Periprosthetic fracture around internal prosthetic right hip joint Is this a current diagnosis for this admission?: Yes Plan: Surgical planning per orthopedics Hold all chemical anticoagulation Bedrest Multimodal pain control Ancef on-call TXA on-call 1 g pre-and 1 g postoperatively Orthopedic surgery following as primary 11/29/2019 Pain moderately well controlled, multiple changes made today Patient is very opioid tolerant and for the past several years has taken 10 mg oxycodone 5 times per day consistently scheduled Use IV narcotics for breakthrough pain only Added 1 mg oral Dilaudid as needed (2) CHF (congestive heart failure) Is this a current diagnosis for this admission?: No (3) Fall Is this a current diagnosis for this admission?: Yes (4) HTN (hypertension) Is this a current diagnosis for this admission?: No (5) Tobacco abuse Is this a current diagnosis for this admission?: No (6) Status post total replacement of right hip Is this a current diagnosis for this admission?: Yes - Time Time Spent with patient: 25-34 minutes Medications reviewed and adjusted accordingly: Yes Anticipated Discharge Disposition: [facility] Facility Anticipated Discharge Timeframe: within 72 hours - Inpatient Certification Based on my medical assessment, after consideration of the patient's comorbidities, presenting symptoms, or acuity I expect that the services needed warrant INPATIENT care.: Yes I certify that my determination is in accordance with my understanding of Medicare's requirements for reasonable and necessary INPATIENT services [42 CFR 412.3e].: Yes Medical Necessity: Significant Comorbidiites Make Outpatient Treatment Too Risky, Need Close Monitoring Due to Risk of Patient Decompensation, Need for Pain Control, Risk of Complication if Not Cared For in Hospital, Risk of Diagnosis Which Will Require Inpatient Eval/Care/Monitoring
[2019-11-29] MEDS ORDERED: BISACODYL 5 MG TABEC PO ONE (15:15)
[2019-11-29] MEDS ORDERED: OXYCODONE HCL SR 10 MG TABLET PO SCH (18:00)
[2019-11-29 21:12] LABS: ABSOLUTE EOSINOPHILS # (AUTO) 0.1 10^3/uL (0.0-0.6); ABSOLUTE MONOCYTES (AUTO) 0.9 10^3/uL (0.1-1.4); ABSOLUTE NEUT (AUTO) 4.1 10^3/uL (1.7-8.2); BASOPHILS % (AUTO) 0.5 % (0-2); EOSINOPHILS % (AUTO) 2.2 % (0-6); LYMPHOCYTES % (AUTO) 16.5 % (13-45); MEAN CORPUSCULAR HEMOGLOBIN 33.1 pg (27.0-33.4); MEAN CORPUSCULAR HGB CONC 35.5 g/dL (32.0-36.0); MEAN CORPUSCULAR VOLUME 93 fl (80-97); PLATELET COUNT 178 10^3/uL (150-450); RED BLOOD COUNT 2.26 10^6/uL (4.35-5.55); RED CELL DISTRIBUTION WIDTH 15.3 % (11.5-14.0); SEGMENTED NEUTROPHILS % (AUTO) 66.8 % (42-78); TOTAL CELLS COUNTED % (AUTO) 100 %; WHITE BLOOD COUNT 6.1 10^3/uL (4.0-10.5)
[2019-11-29 21:15] LABS: HEMOGLOBIN 7.5 g/dL (13.5-17.0)
[2019-11-29] MEDS: ATORVASTATIN CALCIUM 20 MG TABLET PO SCH (22:37)
[2019-11-29 22:41] LABS: APPEARANCE,URINE CLEAR; BILIRUBIN,URINE NEGATIVE (NEGATIVE); COLOR,URINE YELLOW; GLUCOSE, URINE NEGATIVE (NEGATIVE); KETONES,URINE NEGATIVE (NEGATIVE); LEUKOCYTE ESTERASE,URINE NEGATIVE (NEGATIVE); NITRITE,URINE NEGATIVE (NEGATIVE); PROTEIN,URINE NEGATIVE (NEGATIVE); URINE SPECIFIC GRAVITY 1.014
[2019-11-30] MEDS ORDERED: HYDROMORPHONE HCL 2 MG TABLET PO PRN (02:39)
[2019-11-30] MEDS: OXYCODONE HCL SR 10 MG TABLET PO SCH ×3 (06:04→19:55)
[2019-11-30] MEDS: PANTOPRAZOLE SODIUM 20 MG TABLET.DR PO SCH (06:04)
[2019-11-30] MEDS: KETOROLAC TROMETHAMINE INJ/PF 30 MG/1 ML SDV IV SCH ×3 (06:04→21:35)
--- NOTE | 2019-11-30 08:00 | PDOC PROGRESS REPORT ---
Subjective Progress Note for:: 11/30/19 Subjective:: Patient reports pain overnight. Pain is moderately controlled on current pain program however persistent and difficult for the patient to work with physical therapy. Reason For Visit: RIGHT HIP PERIPROSTHETIC FRACTURE Physical Exam Vital Signs: Temp Pulse Resp BP Pulse Ox 100.1 F 80 18 102/50 L 96 11/30/19 03:55 11/30/19 03:55 11/30/19 03:55 11/30/19 03:55 11/30/19 03:55 Intake & Output 11/29/19 11/30/19 12/01/19 06:59 06:59 06:59 Intake Total 3000 500 Output Total 700 300 Balance 2300 200 Weight 110.6 kg 114 kg Physical Exam: No acute distress, alert and oriented x3 Right lower extremity -Pulses 2+ distally -Compartments soft -Sensation grossly intact to L3-4-5 S1 -Motor grossly intact to EHL TA gastroc and quad -Wound clean dry and intact Results Laboratory Results: 11/29/19 20:49 11/27/19 17:50 11/28/19 11/29/19 11/29/19 14:24 14:25 20:49 WBC 6.8 6.1 RBC 1.97 L 2.26 L Hgb 6.6 L 7.5 L Hct 18.8 L 21.0 L MCV 96 93 MCH 33.6 H 33.1 MCHC 35.2 35.5 RDW 14.3 H 15.3 H Plt Count 176 178 Seg Neutrophils % 61.0 66.8 Urine Color Urine Appearance Urine pH Ur Specific [place] Urine Protein Urine Glucose (UA) Urine Ketones Urine Blood Urine Nitrite Ur Leukocyte Esterase Urine WBC (Auto) Urine RBC (Auto) Blood Type B POSITIVE Antibody Screen NEGATIVE 11/29/19 21:30 WBC RBC Hgb Hct MCV MCH MCHC RDW Plt Count Seg Neutrophils % Urine Color YELLOW Urine Appearance CLEAR Urine pH 5.0 Ur Specific [place] 1.014 Urine Protein NEGATIVE Urine Glucose (UA) NEGATIVE Urine Ketones NEGATIVE Urine Blood MODERATE H Urine Nitrite NEGATIVE Ur Leukocyte Esterase NEGATIVE Urine WBC (Auto) 2 Urine RBC (Auto) 3 Blood Type Antibody Screen Impressions: Fluoroscopy 11/28/19 00:00 IMPRESSION: IMAGE(S) OBTAINED DURING PROCEDURE. Hip X-Ray 11/28/19 00:00 IMPRESSION: IMAGE(S) OBTAINED DURING PROCEDURE. Hip/Pelvis X-Ray 11/28/19 00:00 IMPRESSION: Postop images. Refer to operative note for further information. Lower Extremity CT 11/28/19 00:00 IMPRESSION: Acute, comminuted fracture of the right proximal femur which involves the greater trochanter, subtrochanteric region, and proximal femoral diaphysis. Assessment & Plan - Diagnosis (1) Status post total replacement of right hip Is this a current diagnosis for this admission?: Yes (2) Periprosthetic fracture around internal prosthetic right hip joint Is this a current diagnosis for this admission?: Yes Plan: - 2 doses of Ancef postoperatively q 8 hours to complete 24 hours perioperatively -Weightbearing as tolerated, no precautions, encourage out of bed REUBEN for ADL training - PT/OT - Keep knee extended in bed, rolled towel under the ankle to obtain full extension -aspirin 325 daily for DVT prophylaxis for 6 weeks -multimodal pain management to avoid excessive narcotics, including gabapentin, tramadol, Toradol, acetaminophen. -Dressing should not be removed for 7 to 10 days until seen in the office -Keep wound VAC in place, keep until seen in the office, change batteries as needed. -I would like to follow the patient my office within the next 7 to [address] days at [address] [place] [address]. in [place] office #: [phone] (3) Postoperative anemia due to acute blood loss Is this a current diagnosis for this admission?: Yes - Time Time Spent with patient: Less than 15 minutes
[2019-11-30 09:52] LABS: HEMATOCRIT 19.3 % (37.9-51.0); MEAN CORPUSCULAR HEMOGLOBIN 33.1 pg (27.0-33.4); MEAN CORPUSCULAR HGB CONC 35.5 g/dL (32.0-36.0); MEAN CORPUSCULAR VOLUME 93 fl (80-97); PLATELET COUNT 162 10^3/uL (150-450); RED BLOOD COUNT 2.06 10^6/uL (4.35-5.55); RED CELL DISTRIBUTION WIDTH 15.1 % (11.5-14.0); WHITE BLOOD COUNT 6.5 10^3/uL (4.0-10.5)
[2019-11-30 09:55] LABS: HEMOGLOBIN 6.8 g/dL (13.5-17.0)
[2019-11-30] MEDS: ASPIRIN 325 MG TABLET PO SCH (10:53)
[2019-11-30] MEDS: GABAPENTIN 300 MG CAPSULE PO SCH ×2 (10:54→21:34)
[2019-11-30] MEDS: DULOXETINE HCL 30 MG CAPSULE.DR PO SCH (10:54)
[2019-11-30] MEDS: FUROSEMIDE 40 MG TABLET PO SCH (10:54)
[2019-11-30] MEDS: LOSARTAN POTASSIUM 50 MG TABLET PO SCH (10:55)
[2019-11-30] MEDS: HYDROCHLOROTHIAZIDE 25 MG TABLET PO SCH (10:55)
[2019-11-30] MEDS: DOCUSATE SODIUM 100 MG CAPSULE PO SCH (10:55)
[2019-11-30] MEDS: NICOTINE 21 MG/24 HR PATCH.TD24 TD SCH (10:58)
[2019-11-30] MEDS: OXYCODONE HCL IR 5 MG TABLET PO PRN ×2 (11:23→21:37)
[2019-11-30] MEDS ORDERED: IRON SUCROSE COMPLEX INJ/PF 100 MG/5 ML SDV IV ONE (14:45)
--- NOTE | 2019-11-30 15:58 | PDOC PROGRESS REPORT ---
Subjective Progress Note for:: 11/30/19 Subjective:: Medicine consultation at the request of orthopedic surgery for management of chronic medical problems. Patient admitted to orthopedics for right periprosthetic leg fracture after a fall. Patient is doing quite well today and his vitals and laboratory values also support that he is optimized for any surgical procedures that the primary physician as planned. As always, it was explained to the patient and family that no surgery is without risk but will make sure he is optimized for his surgery to reduce the risk as much as possible. Medications continue. Other than right leg pain, patient does not have any new complaints. 11/29/2019 Patient is to be doing fairly well today though he states his pain control could be much better. We talked for a long time about his home pain regimen. I made changes to his regimen today to get him closer to his usual home regimen of 10 mg oxycodone 5 times per day. We will do oxycodone 10 mg every 6 hours scheduled to be held if the patient is sleeping or somnolent. I have also added 1 mg of oral Dilaudid to help with longer lasting pain control. We will keep the IV Dilaudid for breakthrough pain only. Patient and his are in full agreement with this plan and we can always make adjustments later if it is not optimal. Other than the pain in his surgical site and right hip patient has no new complaints today. 11/30/2019 Patient doing much better today than yesterday. He had an episode of somnolence yesterday likely related to low blood counts due to acute blood loss anemia from surgery. Patient was given 1 unit PRBC and to return to his approximate baseline. Narcotics may have played a role in this as he became more anemic. I have ordered the patient to get Venofer as he and his state he has had a chronic anemia yet to be worked up by his PCP. I recommended he have a anemia lab work-up done outpatient including iron studies and folate/B12. I would be happy to do this here though he may be discharged before these results come back. I have ordered a recheck of his CBC for this afternoon. If his hemoglobin is persistently below 7 or he is anemic with symptoms he may benefit from an additional 1 unit PRBC. We have to be cautious given his history of CHF and CAD with stents. We would need to gonzales the unit of blood with a dose of Lasix if this is done. Disposition per orthopedic surgery ultimately as they are primary by believe if the hemoglobin is stable at the next check he can be discharged to a rehab facility. I increased his oxycodone back to his home dose of 10 mg with a decreased frequency of 4 times per day instead of what he takes at home which is 5 times per day. I told nursing and the patient to not use an as needed narcotic along with his scheduled narcotic without them by at least 30 minutes to 1 hour. Reason For Visit: RIGHT HIP PERIPROSTHETIC FRACTURE Physical Exam Vital Signs: Temp Pulse Resp BP Pulse Ox 99.2 F 74 15 95/51 L 94 11/30/19 12:33 11/30/19 12:33 11/30/19 12:33 11/30/19 12:33 11/30/19 12:33 Intake & Output 11/29/19 11/30/19 12/01/19 06:59 06:59 06:59 Intake Total 3000 800 440 Output Total 700 300 450 Balance 2300 500 -10 Weight 110.6 kg 114 kg General appearance: PRESENT: no acute distress, well-developed, well-nourished Head exam: PRESENT: atraumatic, normocephalic Eye exam: PRESENT: conjunctiva pink Mouth exam: PRESENT: moist Respiratory exam: PRESENT: clear to auscultation tamiko. ABSENT: rales, rhonchi, wheezes Cardiovascular exam: PRESENT: RRR. ABSENT: diastolic murmur, rubs, systolic murmur GI/Abdominal exam: PRESENT: normal bowel sounds, soft. ABSENT: distended, guarding, mass, organolmegaly, rebound, tenderness Neurological exam: PRESENT: alert, awake, oriented to person, oriented to place, oriented to time, oriented to situation Psychiatric exam: PRESENT: appropriate affect, normal mood Skin exam: PRESENT: dry, warm Results Laboratory Results: 11/30/19 09:24 11/27/19 17:50 11/28/19 11/29/19 11/29/19 14:24 20:49 21:30 WBC 6.1 RBC 2.26 L Hgb 7.5 L Hct 21.0 L MCV 93 MCH 33.1 MCHC 35.5 RDW 15.3 H Plt Count 178 Seg Neutrophils % 66.8 Urine Color YELLOW Urine Appearance CLEAR Urine pH 5.0 Ur Specific [place] 1.014 Urine Protein NEGATIVE Urine Glucose (UA) NEGATIVE Urine Ketones NEGATIVE Urine Blood MODERATE H Urine Nitrite NEGATIVE Ur Leukocyte Esterase NEGATIVE Urine WBC (Auto) 2 Urine RBC (Auto) 3 Blood Type B POSITIVE Antibody Screen NEGATIVE 11/30/19 09:24 WBC 6.5 RBC 2.06 L Hgb 6.8 L Hct 19.3 L MCV 93 MCH 33.1 MCHC 35.5 RDW 15.1 H Plt Count 162 Seg Neutrophils % Urine Color Urine Appearance Urine pH Ur Specific [place] Urine Protein Urine Glucose (UA) Urine Ketones Urine Blood Urine Nitrite Ur Leukocyte Esterase Urine WBC (Auto) Urine RBC (Auto) Blood Type Antibody Screen Impressions: Fluoroscopy 11/28/19 00:00 IMPRESSION: IMAGE(S) OBTAINED DURING PROCEDURE. Hip X-Ray 11/28/19 00:00 IMPRESSION: IMAGE(S) OBTAINED DURING PROCEDURE. Hip/Pelvis X-Ray 11/28/19 00:00 IMPRESSION: Postop images. Refer to operative note for further information. Lower Extremity CT 11/28/19 00:00 IMPRESSION: Acute, comminuted fracture of the right proximal femur which involves the greater trochanter, subtrochanteric region, and proximal femoral diaphysis. Assessment and Plan - Diagnosis (1) Periprosthetic fracture around internal prosthetic right hip joint Is this a current diagnosis for this admission?: Yes Plan: Surgical planning per orthopedics Hold all chemical anticoagulation Bedrest Multimodal pain control Ancef on-call TXA on-call 1 g pre-and 1 g postoperatively Orthopedic surgery following as primary 11/29/2019 Pain moderately well controlled, multiple changes made today Patient is very opioid tolerant and for the past several years has taken 10 mg oxycodone 5 times per day consistently scheduled Use IV narcotics for breakthrough pain only Added 1 mg oral Dilaudid as needed 11/30/2019 Patient had episode of somnolence yesterday when his acute blood loss anemia from surgery seemed to catch up him. We had also had a long discussion about increasing his narcotics for better pain control and his low blood count probably concentrated his narcotics dosing. Significant improvement after getting 1 unit PRBC Do not give as needed narcotics along with scheduled narcotics without separation of at least 30 minutes to 1 hour (2) CHF (congestive heart failure) Is this a current diagnosis for this admission?: No Plan: 11/19/2019 -Not in acute exacerbation, no echocardiogram on file here, patient appears well compensated Medications continue 11/30/2019 Given 1 unit PRBC yesterday with significant improvement, did not seem to have any problems managing the volume If he gets additional units of blood, would recommend also giving 20 mg IV Lasix (3) Fall Is this a current diagnosis for this admission?: Yes (4) HTN (hypertension) Is this a current diagnosis for this admission?: No (5) Tobacco abuse Is this a current diagnosis for this admission?: No (6) Status post total replacement of right hip Is this a current diagnosis for this admission?: Yes - Time Time Spent with patient: 15-24 minutes Medications reviewed and adjusted accordingly: Yes Anticipated [facility]charge [facility]position[facility] Anticipated Discharge Timeframe: within 48 hours - Inpatient Certification Based on my medical assessment, after consideration of the patient's comorbidities, presenting symptoms, or acuity I expect that the services needed warrant INPATIENT care.: Yes I certify that my determination is in accordance with my understanding of Medicare's requirements for reasonable and necessary INPATIENT services [42 CFR 412.3e].: Yes Medical Necessity: Significant Comorbidiites Make Outpatient Treatment Too Risky, Need Close Monitoring Due to Risk of Patient Decompensation, Risk of Complication if Not Cared For in Hospital, Risk of Diagnosis Which Will Require Inpatient Eval/Care/Monitoring
[2019-11-30] MEDS ORDERED: IRON SUCROSE COMPLEX 400 MG in NORMAL SALINE 250 ML IV ONE (16:00)
[2019-11-30 16:25] LABS: ABSOLUTE EOSINOPHILS # (AUTO) 0.2 10^3/uL (0.0-0.6); ABSOLUTE LYMPHOCYTES (AUTO) 1.4 10^3/uL (0.5-4.7); ABSOLUTE NEUT (AUTO) 4.5 10^3/uL (1.7-8.2); BASOPHILS % (AUTO) 0.5 % (0-2); TOTAL CELLS COUNTED % (AUTO) 100 %
[2019-11-30 16:27] LABS: ABSOLUTE MONOCYTES (AUTO) 0.6 10^3/uL (0.1-1.4); EOSINOPHILS % (AUTO) 2.4 % (0-6); HEMATOCRIT 19.3 % (37.9-51.0); LYMPHOCYTES % (AUTO) 21.1 % (13-45); MEAN CORPUSCULAR VOLUME 94 fl (80-97); MONOCYTES % (AUTO) 9.2 % (3-13); PLATELET COUNT 186 10^3/uL (150-450); RED BLOOD COUNT 2.04 10^6/uL (4.35-5.55); RED CELL DISTRIBUTION WIDTH 15.6 % (11.5-14.0); SEGMENTED NEUTROPHILS % (AUTO) 66.8 % (42-78); WHITE BLOOD COUNT 6.7 10^3/uL (4.0-10.5)
[2019-11-30 16:38] LABS: HEMOGLOBIN 6.7 g/dL (13.5-17.0)
[2019-11-30] MEDS ORDERED: NORMAL SALINE 250 ML IV PRN ×2 (16:39)
[2019-11-30] MEDS ORDERED: FUROSEMIDE 20 MG TABLET PO PRN (16:39)
[2019-11-30] MEDS: ATORVASTATIN CALCIUM 20 MG TABLET PO SCH (21:34)
[2019-11-30] MEDS: ZOLPIDEM TARTRATE 5 MG TABLET PO PRN (21:34)
[2019-12-01] MEDS: OXYCODONE HCL SR 10 MG TABLET PO SCH ×5 (00:31→23:45)
[2019-12-01 02:08] LABS: ABSOLUTE EOSINOPHILS # (AUTO) 0.2 10^3/uL (0.0-0.6); ABSOLUTE LYMPHOCYTES (AUTO) 1.3 10^3/uL (0.5-4.7); ABSOLUTE MONOCYTES (AUTO) 0.6 10^3/uL (0.1-1.4); ABSOLUTE NEUT (AUTO) 4.3 10^3/uL (1.7-8.2); BASOPHILS % (AUTO) 0.5 % (0-2); EOSINOPHILS % (AUTO) 3.4 % (0-6); HEMATOCRIT 22.6 % (37.9-51.0); LYMPHOCYTES % (AUTO) 20.1 % (13-45); MEAN CORPUSCULAR HGB CONC 34.7 g/dL (32.0-36.0); MEAN CORPUSCULAR VOLUME 92 fl (80-97); MONOCYTES % (AUTO) 9.4 % (3-13); PLATELET COUNT 186 10^3/uL (150-450); RED BLOOD COUNT 2.45 10^6/uL (4.35-5.55); RED CELL DISTRIBUTION WIDTH 15.7 % (11.5-14.0); SEGMENTED NEUTROPHILS % (AUTO) 66.6 % (42-78); TOTAL CELLS COUNTED % (AUTO) 100 %; WHITE BLOOD COUNT 6.5 10^3/uL (4.0-10.5)
[2019-12-01 02:12] LABS: HEMOGLOBIN 7.8 g/dL (13.5-17.0)
[2019-12-01] MEDS: PANTOPRAZOLE SODIUM 20 MG TABLET.DR PO SCH (05:26)
[2019-12-01] MEDS: KETOROLAC TROMETHAMINE INJ/PF 30 MG/1 ML SDV IV SCH ×3 (05:27→21:12)
[2019-12-01] MEDS: ASPIRIN 325 MG TABLET PO SCH (10:06)
[2019-12-01] MEDS: LOSARTAN POTASSIUM 50 MG TABLET PO SCH (10:07)
[2019-12-01] MEDS: FUROSEMIDE 40 MG TABLET PO SCH (10:07)
[2019-12-01] MEDS: GABAPENTIN 300 MG CAPSULE PO SCH ×2 (10:08→21:11)
[2019-12-01] MEDS: DOCUSATE SODIUM 100 MG CAPSULE PO SCH (10:08)
[2019-12-01] MEDS: OXYCODONE HCL IR 5 MG TABLET PO PRN ×2 (10:08→21:12)
[2019-12-01] MEDS: DULOXETINE HCL 30 MG CAPSULE.DR PO SCH (10:09)
[2019-12-01] MEDS: HYDROCHLOROTHIAZIDE 25 MG TABLET PO SCH (10:09)
[2019-12-01] MEDS: NICOTINE 21 MG/24 HR PATCH.TD24 TD SCH (10:10)
--- NOTE | 2019-12-01 10:19 | PDOC DISCHARGE SUMMARY ---
Impression - Admit/DC Date/PCP Admission Date/Primary Care Provider: 11/27/19 17:00 Discharge Date: 12/01/19 - Discharge Diagnosis (1) Status post total replacement of right hip Is this a current diagnosis for this admission?: Yes (2) Periprosthetic fracture around internal prosthetic right hip joint Is this a current diagnosis for this admission?: Yes (3) Postoperative anemia due to acute blood loss Is this a current diagnosis for this admission?: Yes - Assessment Summary: Patient was admitted on 11/27/2019 for anticipation of a right total hip arthroplasty revision due to a periprosthetic proximal femur fracture. The medical team was consulted and their recommendations were followed throughout his stay. On 11/28/2019 the patient underwent a revision surgery. Subsequent to this he remained in house for ongoing medical management, pain control, physical therapy and disposition planning. On postoperative day #1 he had a low hemoglobin and some symptoms of anemia including confusion and lightheadedness. Due to this and his history of cardiac ischemia we transfused him 1 unit packed red blood cells. Over the course of the next 2 days his blood counts have stabilized and have improved today. On 12/01/2019 his hemoglobin is 7.8. Additionally he has had no ongoing signs or symptoms of anemia and has been working with physical therapy. His activity with therapy has been somewhat limited due to pain and at this time he may not be appropriate for discharge home safely given the increased needs for activities of daily living. At this time he is stable for discharge to rehab. He had no other acute events or complications of the course of his stay. - Additional Information Resuscitation Status: Full Code Discharge Diet: As Tolerated Discharge Activity: Activity As Tolerated - 50% weightbearing right lower extremity, No Driving Referrals: NOELLE BECERRA JR, DO [ACTIVE PROVISIONAL STAFF] - Home Medications: Atorvastatin Calcium [Lipitor 40 mg Tablet] 40 mg PO DAILY 07/18/19 Diazepam [Valium 5 mg Tablet] 5 mg PO BID 07/18/19 Duloxetine HCl [Cymbalta 30 mg Capsule.dr] 30 mg PO DAILY 07/18/19 Gabapentin 600 mg PO BID 07/18/19 Hydrochlorothiazide [Hydrodiuril 25 mg Tablet] 25 mg PO DAILY 07/18/19 Losartan Potassium 100 mg PO DAILY 07/18/19 Omeprazole 40 mg PO BID 07/18/19 Tamsulosin HCl [Flomax] 0.4 mg PO DAILY 07/18/19 Aspirin [Aspirin 325 mg Tablet] 325 mg PO DAILY tablet 10/12/19 Hydrochlorothiazide [Hydrodiuril 25 mg Tablet] 25 mg PO DAILY tablet 10/12/19 Celecoxib 100 mg PO BID 11/27/19 Diphenhydramine HCl [Benadryl 25 mg Capsule] 25 mg PO Q6HP PRN 11/27/19 Acetaminophen [Tylenol 325 mg Tablet] 975 mg PO Q8HP PRN tablet 12/01/19 Docusate Sodium [Colace 100 mg Capsule] 100 mg PO DAILY capsule 12/01/19 Mag Hydrox/Al Hydrox/Simeth [Maalox Plus Susp 30 Udcup] 30 ml PO Q6HP PRN udc 12/01/19 Nicotine [Nicoderm 21 mg/24 Hr Transderm Patch] 1 each TD DAILY patch.td24 12/01/19 Oxycodone HCl [Oxy-Ir 5 mg Tablet] 5 mg PO Q4HP PRN tablet 12/01/19 Oxycodone HCl [Oxycontin Sr 10 mg Tablet] 10 mg PO Q6 tab.sr.12h 12/01/19 Tramadol HCl [Ultram 50 mg Tablet] 50 mg PO Q4HP PRN tablet 12/01/19 Zolpidem Tartrate [Ambien 5 mg Tablet] 5 mg PO HSP PRN tablet 12/01/19 History of Present Illiness History of Present Illness: JUDITH COLLAZO is a 63 year old male patient with CHF, COPD, chronic smoker smoker, history of sleep apnea, bipolar disorder, CAD with prior stent placement, hyperlipidemia and recent right total hip arthroplasty presents [facility] [place] [facility] to a recent fall and a periprosthetic right femur fracture. He denies presyncopal symptoms, denies associated injury such as head injury, denies loss of consciousness. Reports that he slipped on a wet sort of bricks and fell landing on his right hip directly subsequently having severe 10 out of 10 pain that prevented him from being able to stand or move his right leg. He was transferred that family hospitalization x-ray and found a periprosthetic right femur fracture about the femoral stem. Since that time he has been there on pain medication and transferred here for surgical management. He denies any other associated symptoms. Pain is described as severe, searing aching, 10 out of 10, improved with pain medication, worse with activity or any attempted range of motion. Denies right lower extremity distal paresthesia or numbness or loss of motor function. Physical Exam Vital Signs: Temp Pulse Resp BP Pulse Ox 98.1 F 62 14 102/60 95 12/01/19 04:00 12/01/19 08:00 12/01/19 08:00 12/01/19 08:00 12/01/19 04:00 Intake & Output 11/30/19 12/01/19 12/02/19 06:59 06:59 06:59 Intake Total 800 1630 Output Total 300 2250 Balance 500 -620 Weight 114 kg 111.9 kg Results Laboratory Results: WBC 6.5 10^3/uL (4.0-10.5) 12/01/19 01:45 RBC 2.45 10^6/uL (4.35-5.55) L 12/01/19 01:45 Hgb 7.8 g/dL (13.5-17.0) L 12/01/19 01:45 Hct 22.6 % (37.9-51.0) L 12/01/19 01:45 MCV 92 fl (80-97) 12/01/19 01:45 MCH 32.0 pg (27.0-33.4) 12/01/19 01:45 MCHC 34.7 g/dL (32.0-36.0) 12/01/19 01:45 RDW 15.7 % (11.5-14.0) H 12/01/19 01:45 Plt Count 186 10^3/uL (150-450) 12/01/19 01:45 Lymph % (Auto) 20.1 % (13-45) 12/01/19 01:45 [place] % (Auto) 9.4 % (3-13) 12/01/19 01:45 Eos % (Auto) 3.4 % (0-6) 12/01/19 01:45 Baso % (Auto) 0.5 % (0-2) 12/01/19 01:45 Absolute Neuts (auto) 4.3 10^3/uL (1.7-8.2) 12/01/19 01:45 Absolute Lymphs (auto) 1.3 10^3/uL (0.5-4.7) 12/01/19 01:45 Absolute Monos (auto) 0.6 10^3/uL (0.1-1.4) 12/01/19 01:45 Absolute Eos (auto) 0.2 10^3/uL (0.0-0.6) 12/01/19 01:45 Absolute Basos (auto) 0.0 10^3/uL (0.0-0.2) 12/01/19 01:45 Seg Neutrophils % 66.6 % (42-78) 12/01/19 01:45 PT 13.4 SEC (11.4-15.4) 11/27/19 19:55 INR 1.02 11/27/19 19:55 Sodium 131.9 mmol/L (137-145) L 11/27/19 17:50 Potassium 3.3 mmol/L (3.6-5.0) L 11/27/19 17:50 Chloride 95 mmol/L (98-107) L 11/27/19 17:50 Carbon Dioxide 30 mmol/L (22-30) 11/27/19 17:50 Anion Gap 7 (5-19) 11/27/19 17:50 BUN 16 mg/dL (7-20) 11/27/19 17:50 Creatinine 0.97 mg/dL (0.52-1.25) 11/27/19 17:50 Creatinine Cancelled 11/27/19 17:50 Est GFR ( Amer) > 60 (>60) 11/27/19 17:50 Est GFR ( Amer) Cancelled 11/27/19 17:50 Est GFR (Non-Af Amer) Cancelled 11/27/19 17:50 Est GFR (MDRD) Non-Af > 60 (>60) 11/27/19 17:50 Est GFR (MDRD) Non-Af Cancelled 11/27/19 17:50 Glucose 111 mg/dL (75-110) H 11/27/19 17:50 Hemoglobin A1c % 5.0 % (4.7-6.0) 11/28/19 06:42 Calcium 8.7 mg/dL (8.4-10.2) 11/27/19 17:50 Magnesium 1.9 mg/dL (1.6-2.3) 11/27/19 17:50 Total Bilirubin 0.6 mg/dL (0.2-1.3) 11/27/19 17:50 Direct Bilirubin 0.0 mg/dL (0.0-0.4) 11/27/19 17:50 Neonat Total Bilirubin Not Reportable 11/27/19 17:50 Neonat Direct Bilirubin Not Reportable 11/27/19 17:50 Neonat Indirect Bili Not Reportable 11/27/19 17:50 AST 22 U/L (17-59) 11/27/19 17:50 ALT 11 U/L (<50) 11/27/19 17:50 Alkaline Phosphatase 58 U/L (38-126) 11/27/19 17:50 Total Protein 5.8 g/dL (6.3-8.2) L 11/27/19 17:50 Albumin 3.1 g/dL (3.5-5.0) L 11/27/19 17:50 EGFR Cancelled 11/27/19 17:50 Urine Color YELLOW 11/29/19 21:30 Urine Appearance CLEAR 11/29/19 21:30 Urine pH 5.0 (5.0-9.0) 11/29/19 21:30 Ur Specific [place] 1.014 11/29/19 21:30 Urine Protein NEGATIVE mg/dL (NEGATIVE) 11/29/19 21:30 Urine Glucose (UA) NEGATIVE mg/dL (NEGATIVE) 11/29/19 21:30 Urine Ketones NEGATIVE mg/dL (NEGATIVE) 11/29/19 21:30 Urine Blood MODERATE (NEGATIVE) H 11/29/19 21:30 Urine Nitrite NEGATIVE (NEGATIVE) 11/29/19 21:30 Urine Bilirubin NEGATIVE (NEGATIVE) 11/29/19 21:30 Urine Urobilinogen 2.0 mg/dL (<2.0) H 11/29/19 21:30 Ur Leukocyte Esterase NEGATIVE (NEGATIVE) 11/29/19 21:30 Urine WBC (Auto) 2 /HPF 11/29/19 21:30 Urine RBC (Auto) 3 /HPF 11/29/19 21:30 U Hyaline Cast (Auto) 5 /LPF 11/29/19 21:30 Urine Mucus (Auto) RARE /LPF 11/29/19 21:30 Urine Ascorbic Acid NEGATIVE (NEGATIVE) 11/29/19 21:30 Blood Type B POSITIVE 11/28/19 14:24 Blood Type Confirm B POSITIVE 11/28/19 14:24 Antibody Screen NEGATIVE 11/28/19 14:24 Crossmatch See Detail 11/28/19 14:24 Impressions: Fluoroscopy 11/28/19 00:00 IMPRESSION: IMAGE(S) OBTAINED DURING PROCEDURE. Hip X-Ray 11/28/19 00:00 IMPRESSION: IMAGE(S) OBTAINED DURING PROCEDURE. Hip/Pelvis X-Ray 11/28/19 00:00 IMPRESSION: Postop images. Refer to operative note for further information. Lower Extremity CT 11/28/19 00:00 IMPRESSION: Acute, comminuted fracture of the right proximal femur which involves the greater trochanter, subtrochanteric region, and proximal femoral diaphysis. Stroke Is this a Stroke Patient?: No Acute Heart Failure - Is this a Heart Failure Patient?: No
--- NOTE | 2019-12-01 10:23 | PDOC PROGRESS REPORT ---
Subjective Progress Note for:: 12/01/19 Subjective:: Patient is doing well this morning. Pain is controlled as it has been and the patient has an acceptable understanding of his current level of pain. No acute events overnight. No symptoms of anemia. Reason For Visit: RIGHT HIP PERIPROSTHETIC FRACTURE Physical Exam Vital Signs: Temp Pulse Resp BP Pulse Ox 98.1 F 62 14 102/60 95 12/01/19 04:00 12/01/19 08:00 12/01/19 08:00 12/01/19 08:00 12/01/19 04:00 Intake & Output 11/30/19 12/01/19 12/02/19 06:59 06:59 06:59 Intake Total 800 1630 Output Total 300 2250 Balance 500 -620 Weight 114 kg 111.9 kg Physical Exam: No acute distress, alert and oriented x3 Right lower extremity -Pulses 2+ distally -Compartments soft -Sensation grossly intact to L3-4-5 S1 -Motor grossly intact to EHL TA gastroc and quad -Wound clean dry and intact, no output in wound VAC, seal still maintained Results Laboratory Results: 12/01/19 01:45 11/27/19 17:50 11/28/19 11/30/19 12/01/19 14:24 15:57 01:45 WBC 6.7 6.5 RBC 2.04 L 2.45 L Hgb 6.7 L 7.8 L Hct 19.3 L 22.6 L MCV 94 92 MCH 33.0 32.0 MCHC 35.0 34.7 RDW 15.6 H 15.7 H Plt Count 186 186 Seg Neutrophils % 66.8 66.6 Blood Type B POSITIVE Antibody Screen NEGATIVE Impressions: Fluoroscopy 11/28/19 00:00 IMPRESSION: IMAGE(S) OBTAINED DURING PROCEDURE. Hip X-Ray 11/28/19 00:00 IMPRESSION: IMAGE(S) OBTAINED DURING PROCEDURE. Hip/Pelvis X-Ray 11/28/19 00:00 IMPRESSION: Postop images. Refer to operative note for further information. Lower Extremity CT 11/28/19 00:00 IMPRESSION: Acute, comminuted fracture of the right proximal femur which involves the greater trochanter, subtrochanteric region, and proximal femoral diaphysis. Assessment & Plan - Diagnosis (1) Status post total replacement of right hip Is this a current diagnosis for this admission?: Yes Plan: -50% weightbearing right lower extremity -Aspirin for DVT prophylaxis for the next 6 weeks, may return to his administrative services director for further recommendations given his history of stents. Recently pulled off of his blood thinner by his administrative services director with the exceptions of aspirin -May be discharged to rehab today pending approval and bed availability -Maintain negative pressure dressing until seen in the office, changed batteries as needed. (2) Periprosthetic fracture around internal prosthetic right hip joint Is this a current diagnosis for this admission?: Yes (3) Postoperative anemia due to acute blood loss Is this a current diagnosis for this admission?: Yes Plan: -Asymptomatic anemia this morning. Improved hemoglobin overnight. Would not transfuse another unit. Patient is now stable for discharge. - Time Time Spent with patient: Less than 15 minutes
--- NOTE | 2019-12-01 10:35 | PDOC PROGRESS REPORT ---
Subjective Progress Note for:: 12/01/19 Subjective:: Medicine consultation at the request of orthopedic surgery for management of chronic medical problems. Patient admitted to orthopedics for right periprosthetic leg fracture after a fall. Patient is doing quite well today and his vitals and laboratory values also support that he is optimized for any surgical procedures that the primary physician as planned. As always, it was explained to the patient and family that no surgery is without risk but will make sure he is optimized for his surgery to reduce the risk as much as possible. Medications continue. Other than right leg pain, patient does not have any new complaints. 11/29/2019 Patient is to be doing fairly well today though he states his pain control could be much better. We talked for a long time about his home pain regimen. I made changes to his regimen today to get him closer to his usual home regimen of 10 mg oxycodone 5 times per day. We will do oxycodone 10 mg every 6 hours scheduled to be held if the patient is sleeping or somnolent. I have also added 1 mg of oral Dilaudid to help with longer lasting pain control. We will keep the IV Dilaudid for breakthrough pain only. Patient and his are in full agreement with this plan and we can always make adjustments later if it is not optimal. Other than the pain in his surgical site and right hip patient has no new complaints today. 11/30/2019 Patient doing much better today than yesterday. He had an episode of somnolence yesterday likely related to low blood counts due to acute blood loss anemia from surgery. Patient was given 1 unit PRBC and to return to his approximate baseline. Narcotics may have played a role in this as he became more anemic. I have ordered the patient to get Venofer as he and his state he has had a chronic anemia yet to be worked up by his PCP. I recommended he have a anemia lab work-up done outpatient including iron studies and folate/B12. I would be happy to do this here though he may be discharged before these results come back. I have ordered a recheck of his CBC for this afternoon. If his hemoglobin is persistently below 7 or he is anemic with symptoms he may benefit from an additional 1 unit PRBC. We have to be cautious given his history of CHF and CAD with stents. We would need to gonzales the unit of blood with a dose of Lasix if this is done. Disposition per orthopedic surgery ultimately as they are primary by believe if the hemoglobin is stable at the next check he can be discharged to a rehab facility. I increased his oxycodone back to his home dose of 10 mg with a decreased frequency of 4 times per day instead of what he takes at home which is 5 times per day. I told nursing and the patient to not use an as needed narcotic along with his scheduled narcotic without them by at least 30 minutes to 1 hour. 12/01/2019-patient is comfortably in the bed communicating well. Family members at bedside. Hemoglobin 7.8 they were hesitant getting blood transfusion at this time. Patient has drain present on the right thigh.. looks Dr. Montes is p bulmaro to discharge him today. Reason For Visit: RIGHT HIP PERIPROSTHETIC FRACTURE Physical Exam Vital Signs: Temp Pulse Resp BP Pulse Ox 98.1 F 62 14 102/60 95 12/01/19 04:00 12/01/19 08:00 12/01/19 08:00 12/01/19 08:00 12/01/19 04:00 Intake & Output 11/30/19 12/01/19 12/02/19 06:59 06:59 06:59 Intake Total 800 1630 Output Total 300 2250 Balance 500 -620 Weight 114 kg 111.9 kg General appearance: PRESENT: no acute distress, obese, well-developed Head exam: PRESENT: atraumatic Eye exam: PRESENT: PERRLA Mouth exam: PRESENT: moist, tongue midline Teeth exam: PRESENT: poor dentation Respiratory exam: PRESENT: decreased breath sounds Cardiovascular exam: PRESENT: RRR. ABSENT: diastolic murmur, rubs, systolic murmur GI/Abdominal exam: PRESENT: normal bowel sounds, soft. ABSENT: distended, guarding, mass, organolmegaly, rebound, tenderness Rectal exam: PRESENT: deferred Extremities exam: PRESENT: other - Patient has a drain present on the lateral aspect of the right thigh. Neurological exam: PRESENT: alert, awake, oriented to person, oriented to place, oriented to time, oriented to situation, CN II-XII grossly intact. ABSENT: motor sensory deficit Psychiatric exam: PRESENT: appropriate affect, normal mood. ABSENT: homicidal ideation, suicidal ideation Results Laboratory Results: 12/01/19 01:45 11/27/19 17:50 11/28/19 11/30/19 12/01/19 14:24 15:57 01:45 WBC 6.7 6.5 RBC 2.04 L 2.45 L Hgb 6.7 L 7.8 L Hct 19.3 L 22.6 L MCV 94 92 MCH 33.0 32.0 MCHC 35.0 34.7 RDW 15.6 H 15.7 H Plt Count 186 186 Seg Neutrophils % 66.8 66.6 Blood Type B POSITIVE Antibody Screen NEGATIVE Impressions: Fluoroscopy 11/28/19 00:00 IMPRESSION: IMAGE(S) OBTAINED DURING PROCEDURE. Hip X-Ray 11/28/19 00:00 IMPRESSION: IMAGE(S) OBTAINED DURING PROCEDURE. Hip/Pelvis X-Ray 11/28/19 00:00 IMPRESSION: Postop images. Refer to operative note for further information. Lower Extremity CT 11/28/19 00:00 IMPRESSION: Acute, comminuted fracture of the right proximal femur which involves the greater trochanter, subtrochanteric region, and proximal femoral diaphysis. Assessment and Plan - Diagnosis (1) Fall Is this a current diagnosis for this admission?: Yes Plan: 11/27/2019-patient admitted with a fall followed by right periprosthetic fracture. Dr. Montes is going to admit the patient be requested for hospitalist consultation. Patient is going for surgery tomorrow. He is going to be n.p.o. for bleed. Basic labs and EKG was requested. Echocardiogram is requested. Not on DVT prophylaxis because of the imminent surgery tomorrow. Physical therapy consult case management consult requested. (2) Hip fracture Is this a current diagnosis for this admission?: Yes Plan: 11/19/2019-patient admitted with a fall followed by right periprosthetic [place] B12 proximal femur fracture. Dr. Montes is planning to take him to the OR tomorrow. Patient started on IV morphine 1 mg every 4 hours as needed basis. GI prophylaxis initiated. Physical therapy consult was requested behavioral health case manager consult was requested. To hold aspirin at this time. 12/01/2019-preoperative diagnosis right hip periprosthetic femur fracture, postoperative diagnosis right hip periprosthetic femur fracture status post right total hip arthroplasty femoral reversion done on 11/28/2019. dr Montes is discharging the patient today. (3) HTN (hypertension) Is this a current diagnosis for this admission?: No Plan: -No need for IV hydralazine for blood pressure control Treat blood pressure with oral medications as appropriate 12/01/2019-patient blood pressure is 106/54. Stable. (4) Tobacco abuse Is this a current diagnosis for this admission?: No Plan: 11/27/2019-patient is a chronic daily day smoker smoking consult was provided for more than [address] him on nicotine patches. (5) CHF (congestive heart failure) Is this a current diagnosis for this admission?: No Plan: 11/19/2019 -Not in acute exacerbation, no echocardiogram on file here, patient appears well compensated Medications continue 11/30/2019 Given 1 unit PRBC yesterday with significant improvement, did not seem to have any problems managing the volume If he gets additional units of blood, would recommend also giving 20 mg IV Lasix 12/01/2019-patient has history of diastolic heart failure. EF is 65% and echocardiogram shows grade 1/grade 4 diastolic heart failure. - Plan Summary Summary: Patient was admitted on 11/27/2019 for anticipation of a right total hip arthroplasty revision due to a periprosthetic proximal femur fracture. The medical team was consulted and their recommendations were followed throughout his stay. On 11/28/2019 the patient underwent a revision surgery. Subsequent to this he remained in house for ongoing medical management, pain control, physical therapy and disposition planning. On postoperative day #1 he had a low hemoglobin and some symptoms of anemia including confusion and lightheadedness. Due to this and his history of cardiac ischemia we transfused him 1 unit packed red blood cells. Over the course of the next 2 days his blood counts have stabilized and have improved today. On 12/01/2019 his hemoglobin is 7.8. Additionally he has had no ongoing signs or symptoms of anemia and has been working with physical therapy. His activity with therapy has been somewhat limited due to pain and at this time he may not be appropriate for discharge home safely given the increased needs for activities of daily living. At this time he is stable for discharge to rehab. He had no other acute events or complications of the course of his stay. - Time Anticipated Discharge Disposition: [facility]-Way Facility Anticipated Discharge Timeframe: within 24 hours
[2019-12-01] MEDS: ATORVASTATIN CALCIUM 20 MG TABLET PO SCH (21:11)
[2019-12-01] MEDS: ZOLPIDEM TARTRATE 5 MG TABLET PO PRN (21:12)
[2019-12-02] MEDS: PANTOPRAZOLE SODIUM 20 MG TABLET.DR PO SCH (05:36)
[2019-12-02] MEDS: KETOROLAC TROMETHAMINE INJ/PF 30 MG/1 ML SDV IV SCH ×3 (05:36→21:04)
[2019-12-02] MEDS: OXYCODONE HCL SR 10 MG TABLET PO SCH ×4 (05:36→23:55)
[2019-12-02 08:06] LABS: ABSOLUTE BASOPHILS # (AUTO) 0.1 10^3/uL (0.0-0.2); ABSOLUTE EOSINOPHILS # (AUTO) 0.3 10^3/uL (0.0-0.6); ABSOLUTE LYMPHOCYTES (AUTO) 1.8 10^3/uL (0.5-4.7); ABSOLUTE MONOCYTES (AUTO) 0.5 10^3/uL (0.1-1.4); ABSOLUTE NEUT (AUTO) 3.9 10^3/uL (1.7-8.2); BASOPHILS % (AUTO) 0.8 % (0-2); EOSINOPHILS % (AUTO) 4.1 % (0-6); HEMATOCRIT 22.7 % (37.9-51.0); LYMPHOCYTES % (AUTO) 28.3 % (13-45); MEAN CORPUSCULAR HEMOGLOBIN 32.2 pg (27.0-33.4); MEAN CORPUSCULAR VOLUME 92 fl (80-97); MONOCYTES % (AUTO) 6.9 % (3-13); PLATELET COUNT 239 10^3/uL (150-450); RED BLOOD COUNT 2.46 10^6/uL (4.35-5.55); RED CELL DISTRIBUTION WIDTH 15.8 % (11.5-14.0); SEGMENTED NEUTROPHILS % (AUTO) 59.9 % (42-78); TOTAL CELLS COUNTED % (AUTO) 100 %; WHITE BLOOD COUNT 6.5 10^3/uL (4.0-10.5)
[2019-12-02 08:09] LABS: HEMOGLOBIN 7.9 g/dL (13.5-17.0)
[2019-12-02 08:22] LABS: ALBUMIN 2.5 g/dL (3.5-5.0); ALKALINE PHOSPHATASE 62 U/L (38-126); ASPARTATE AMINO TRANSFERASE 71 U/L (17-59); BILIRUBIN,DIRECT 0.1 mg/dL (0.0-0.4); BILIRUBIN,TOTAL 0.7 mg/dL (0.2-1.3); BLOOD UREA NITROGEN 19 mg/dL (7-20); CALCIUM 7.8 mg/dL (8.4-10.2); GLUCOSE 104 mg/dL (75-110); POTASSIUM 3.2 mmol/L (3.6-5.0); TOTAL PROTEIN 4.9 g/dL (6.3-8.2)
[2019-12-02 08:27] LABS: CARBON DIOXIDE 29 mmol/L (22-30); CHLORIDE 100 mmol/L (98-107)
[2019-12-02 08:28] LABS: ANION GAP 4 (5-19)
[2019-12-02] MEDS: OXYCODONE HCL IR 5 MG TABLET PO PRN ×2 (09:00→21:08)
[2019-12-02] MEDS: FUROSEMIDE 40 MG TABLET PO SCH (09:52)
[2019-12-02] MEDS: LOSARTAN POTASSIUM 50 MG TABLET PO SCH (09:57)
[2019-12-02] MEDS: ASPIRIN 325 MG TABLET PO SCH (09:57)
[2019-12-02] MEDS: GABAPENTIN 300 MG CAPSULE PO SCH ×2 (09:57→21:08)
[2019-12-02] MEDS: DOCUSATE SODIUM 100 MG CAPSULE PO SCH (09:57)
[2019-12-02] MEDS: DULOXETINE HCL 30 MG CAPSULE.DR PO SCH (09:58)
[2019-12-02] MEDS: HYDROCHLOROTHIAZIDE 25 MG TABLET PO SCH (09:58)
[2019-12-02] MEDS: NICOTINE 21 MG/24 HR PATCH.TD24 TD SCH (09:58)
[2019-12-02] MEDS ORDERED: POTASSIUM CHLORIDE 10 MEQ TABLET.ER PO ONE (10:00)
--- NOTE | 2019-12-02 10:00 | PDOC PROGRESS REPORT ---
Subjective Progress Note for:: 12/02/19 Subjective:: Medicine consultation at the request of orthopedic surgery for management of chronic medical problems. Patient admitted to orthopedics for right periprosthetic leg fracture after a fall. Patient is doing quite well today and his vitals and laboratory values also support that he is optimized for any surgical procedures that the primary physician as planned. As always, it was explained to the patient and family that no surgery is without risk but will make sure he is optimized for his surgery to reduce the risk as much as possible. Medications continue. Other than right leg pain, patient does not have any new complaints. 11/29/2019 Patient is to be doing fairly well today though he states his pain control could be much better. We talked for a long time about his home pain regimen. I made changes to his regimen today to get him closer to his usual home regimen of 10 mg oxycodone 5 times per day. We will do oxycodone 10 mg every 6 hours scheduled to be held if the patient is sleeping or somnolent. I have also added 1 mg of oral Dilaudid to help with longer lasting pain control. We will keep the IV Dilaudid for breakthrough pain only. Patient and his are in full agreement with this plan and we can always make adjustments later if it is not optimal. Other than the pain in his surgical site and right hip patient has no new complaints today. 11/30/2019 Patient doing much better today than yesterday. He had an episode of somnolence yesterday likely related to low blood counts due to acute blood loss anemia from surgery. Patient was given 1 unit PRBC and to return to his approximate baseline. Narcotics may have played a role in this as he became more anemic. I have ordered the patient to get Venofer as he and his state he has had a chronic anemia yet to be worked up by his PCP. I recommended he have a anemia lab work-up done outpatient including iron studies and folate/B12. I would be happy to do this here though he may be discharged before these results come back. I have ordered a recheck of his CBC for this afternoon. If his hemoglobin is persistently below 7 or he is anemic with symptoms he may benefit from an additional 1 unit PRBC. We have to be cautious given his history of CHF and CAD with stents. We would need to gonzales the unit of blood with a dose of Lasix if this is done. Disposition per orthopedic surgery ultimately as they are primary by believe if the hemoglobin is stable at the next check he can be discharged to a rehab facility. I increased his oxycodone back to his home dose of 10 mg with a decreased frequency of 4 times per day instead of what he takes at home which is 5 times per day. I told nursing and the patient to not use an as needed narcotic along with his scheduled narcotic without them by at least 30 minutes to 1 hour. 12/01/2019-patient is comfortably in the bed communicating well. Family members at bedside. Hemoglobin 7.8 they were hesitant getting blood transfusion at this time. Patient has drain present on the right thigh.. looks Dr. Montes is p bulmaro to discharge him today. 12/02/2019-patient is actively participating with physical therapy. No complaints no concerns expressed by the patient. Waiting for placement. Reason For Visit: RIGHT HIP PERIPROSTHETIC FRACTURE Physical Exam Vital Signs: Temp Pulse Resp BP Pulse Ox 98.3 F 78 14 116/51 L 96 12/02/19 08:20 12/02/19 08:20 12/02/19 08:20 12/02/19 08:20 12/02/19 08:20 Intake & Output 12/01/19 12/02/19 12/03/19 06:59 06:59 06:59 Intake Total 1630 780 Output Total 2250 1625 Balance -620 -845 Weight 111.9 kg 112.3 kg General appearance: PRESENT: no acute distress, well-developed Head exam: PRESENT: atraumatic Eye exam: PRESENT: PERRLA Mouth exam: PRESENT: moist, tongue midline Teeth exam: PRESENT: poor dentation Neck exam: ABSENT: carotid bruit, JVD, lymphadenopathy, thyromegaly Respiratory exam: PRESENT: clear to auscultation tamiko. ABSENT: rales, rhonchi, wheezes Cardiovascular exam: PRESENT: RRR. ABSENT: diastolic murmur, rubs, systolic murmur GI/Abdominal exam: PRESENT: normal bowel sounds, soft. ABSENT: distended, guarding, mass, organolmegaly, rebound, tenderness Rectal exam: PRESENT: deferred Extremities exam: PRESENT: full ROM. ABSENT: calf tenderness, clubbing, pedal edema Neurological exam: PRESENT: alert, awake, oriented to person, oriented to place, oriented to time, oriented to situation, CN II-XII grossly intact. ABSENT: motor sensory deficit Psychiatric exam: PRESENT: appropriate affect, normal mood. ABSENT: homicidal ideation, suicidal ideation Results Laboratory Results: 12/02/19 07:42 12/02/19 07:42 12/02/19 12/02/19 07:42 07:42 WBC 6.5 RBC 2.46 L Hgb 7.9 L Hct 22.7 L MCV 92 MCH 32.2 MCHC 35.0 RDW 15.8 H Plt Count 239 Seg Neutrophils % 59.9 Sodium 132.6 L Potassium 3.2 L Chloride 100 Carbon Dioxide 29 Anion Gap 4 L BUN 19 Creatinine 0.98 Est GFR ( Amer) > 60 Glucose 104 Calcium 7.8 L Magnesium 2.1 Total Bilirubin 0.7 AST 71 H Alkaline Phosphatase 62 Total Protein 4.9 L Albumin 2.5 L Impressions: Fluoroscopy 11/28/19 00:00 IMPRESSION: IMAGE(S) OBTAINED DURING PROCEDURE. Hip X-Ray 11/28/19 00:00 IMPRESSION: IMAGE(S) OBTAINED DURING PROCEDURE. Hip/Pelvis X-Ray 11/28/19 00:00 IMPRESSION: Postop images. Refer to operative note for further information. Lower Extremity CT 11/28/19 00:00 IMPRESSION: Acute, comminuted fracture of the right proximal femur which involves the greater trochanter, subtrochanteric region, and proximal femoral diaphysis. Assessment and Plan - Diagnosis (1) Fall Is this a current diagnosis for this admission?: Yes Plan: 11/27/2019-patient admitted with a fall followed by right periprosthetic fracture. Dr. Montes is going to admit the patient be requested for hospitalist consultation. Patient is going for surgery tomorrow. He is going to be n.p.o. for bleed. Basic labs and EKG was requested. Echocardiogram is requested. Not on DVT prophylaxis because of the imminent surgery tomorrow. Physical therapy consult case management consult requested. 12/02/2019-patient is doing well. Participating with physical therapy. Plan is to discharge him to short-term rehab when bed is available. (2) Hip fracture Is this a current diagnosis for this admission?: Yes Plan: 11/19/2019-patient admitted with a fall followed by right periprosthetic [place] B12 proximal femur fracture. Dr. Montes is planning to take him to the OR tomorrow. Patient started on IV morphine 1 mg every 4 hours as needed basis. GI prophylaxis initiated. Physical therapy consult was requested case coordinator consult was requested. To hold aspirin at this time. 12/01/2019-preoperative diagnosis right hip periprosthetic femur fracture, postoperative diagnosis right hip periprosthetic femur fracture status post right total hip arthroplasty femoral reversion done on 11/28/2019. dr Montes is discharging the patient today. 12/02/2019-patient admitted with a right hip periprosthetic femur fracture status post surgery. Actively participating in physical therapy. Waiting for placement. (3) HTN (hypertension) Is this a current diagnosis for this admission?: No Plan: -No need for IV hydralazine for blood pressure control Treat blood pressure with oral medications as appropriate 12/01/2019-patient blood pressure is 106/54. Stable. 12/02/2019-blood pressure today is 110/68. Stable. Patient is asymptomatic. (4) Tobacco abuse Is this a current diagnosis for this admission?: No (5) CHF (congestive heart failure) Is this a current diagnosis for this admission?: No Plan: 11/19/2019 -Not in acute exacerbation, no echocardiogram on file here, patient appears well compensated Medications continue 11/30/2019 Given 1 unit PRBC yesterday with significant improvement, did not seem to have any problems managing the volume If he gets additional units of blood, would recommend also giving 20 mg IV Lasix 12/01/2019-patient has history of diastolic heart failure. EF is 65% and echocardiogram shows grade 1/grade 4 diastolic heart failure. 12/02/2019-patient is not in fluid overload at the time of my examination. Actively participating in physical therapy. (6) Anemia Is this a current diagnosis for this admission?: Yes Plan: 12/02/2019-hemoglobin is stable. Today's hemoglobin is 7.9 and yesterday's hemoglobin is 7.8. Patient received IV iron and IV blood transfusions during this hospital stay. Plan is to repeat the labs tomorrow. Patient most likely has chronic anemia. No active signs of bleeding seen. (7) Obesity (BMI 30-39.9) Is this a current diagnosis for this admission?: No Plan: 12/02/2019-patient BMI is more than 35 diet exercise weight loss lifestyle modifications discussed with the patient. - Plan Summary Summary: Patient was admitted on 11/27/2019 for anticipation of a right total hip arthroplasty revision due to a periprosthetic proximal femur fracture. The medical team was consulted and their recommendations were followed throughout his stay. On 11/28/2019 the patient underwent a revision surgery. Subsequent to this he remained in house for ongoing medical management, pain control, physical therapy and disposition planning. On postoperative day #1 he had a low hemoglobin and some symptoms of anemia including confusion and lightheadedness. Due to this and his history of cardiac ischemia we transfused him 1 unit packed red blood cells. Over the course of the next 2 days his blood counts have stabilized and have improved today. On 12/01/2019 his hemoglobin is 7.8. Add itionally he has had no ongoing signs or symptoms of anemia and has been working with physical therapy. His activity with therapy has been somewhat limited due to pain and at this time he may not be appropriate for discharge home safely given the increased needs for activities of daily living. At this time he is stable for discharge to rehab. He had no other acute events or complications of the course of his stay. - Time Anticipated Discharge Disposition: Longterm Facility Anticipated Discharge Timeframe: within 48 hours
[2019-12-02] MEDS: ATORVASTATIN CALCIUM 20 MG TABLET PO SCH (21:08)
--- NOTE | 2019-12-02 22:02 | PDOC PROGRESS REPORT ---
Subjective Progress Note for:: 12/02/19 Subjective:: Patient doing well. Working well with PT but not yet to capacity for discharge home. Reason For Visit: RIGHT HIP PERIPROSTHETIC FRACTURE Physical Exam Vital Signs: Temp Pulse Resp BP Pulse Ox 98.1 F 74 18 100/58 L 99 12/02/19 20:00 12/02/19 20:00 12/02/19 20:00 12/02/19 20:00 12/02/19 20:00 Intake & Output 12/01/19 12/02/19 12/03/19 06:59 06:59 06:59 Intake Total 1630 780 341 Output Total 2250 1625 Balance -620 -845 341 Weight 111.9 kg 112.3 kg Physical Exam: NAD, AOx3 RLE NVI Minimal spotting in negative pressure dressing Compartments soft, non tender Results Laboratory Results: 12/02/19 07:42 12/02/19 07:42 12/02/19 12/02/19 07:42 07:42 WBC 6.5 RBC 2.46 L Hgb 7.9 L Hct 22.7 L MCV 92 MCH 32.2 MCHC 35.0 RDW 15.8 H Plt Count 239 Seg Neutrophils % 59.9 Sodium 132.6 L Potassium 3.2 L Chloride 100 Carbon Dioxide 29 Anion Gap 4 L BUN 19 Creatinine 0.98 Est GFR ( Amer) > 60 Glucose 104 Calcium 7.8 L Magnesium 2.1 Total Bilirubin 0.7 AST 71 H Alkaline Phosphatase 62 Total Protein 4.9 L Albumin 2.5 L Impressions: Fluoroscopy 11/28/19 00:00 IMPRESSION: IMAGE(S) OBTAINED DURING PROCEDURE. Hip X-Ray 11/28/19 00:00 IMPRESSION: IMAGE(S) OBTAINED DURING PROCEDURE. Hip/Pelvis X-Ray 11/28/19 00:00 IMPRESSION: Postop images. Refer to operative note for further information. Lower Extremity CT 11/28/19 00:00 IMPRESSION: Acute, comminuted fracture of the right proximal femur which involves the greater trochanter, subtrochanteric region, and proximal femoral diaphysis. Assessment & Plan - Diagnosis (1) Status post total replacement of right hip Is this a current diagnosis for this admission?: Yes Plan: Disposition pending, potential discharge to rehab tomorrow 50% WB RLE PT Pain Control ASA for DVT PPX (2) Periprosthetic fracture around internal prosthetic right hip joint Is this a current diagnosis for this admission?: Yes (3) Postoperative anemia due to acute blood loss Is this a current diagnosis for this admission?: Yes Plan: Stabilized. No further blood draws needed. - Time Time Spent with patient: Less than 15 minutes
[2019-12-02] MEDS: ZOLPIDEM TARTRATE 5 MG TABLET PO PRN (22:38)
[2019-12-03] MEDS: KETOROLAC TROMETHAMINE INJ/PF 30 MG/1 ML SDV IV SCH ×3 (05:18→21:28)
[2019-12-03] MEDS: PANTOPRAZOLE SODIUM 20 MG TABLET.DR PO SCH (05:20)
[2019-12-03] MEDS: OXYCODONE HCL SR 10 MG TABLET PO SCH ×4 (05:20→23:38)
[2019-12-03] MEDS: CELECOXIB 100 MG CAPSULE PO SCH ×2 (09:23→17:35)
[2019-12-03] MEDS: FUROSEMIDE 40 MG TABLET PO SCH (09:23)
[2019-12-03] MEDS: ASPIRIN 325 MG TABLET PO SCH (09:23)
[2019-12-03] MEDS: GABAPENTIN 300 MG CAPSULE PO SCH ×2 (09:23→22:16)
[2019-12-03] MEDS: HYDROCHLOROTHIAZIDE 25 MG TABLET PO SCH (09:23)
[2019-12-03] MEDS: NICOTINE 21 MG/24 HR PATCH.TD24 TD SCH (09:23)
[2019-12-03] MEDS: DULOXETINE HCL 30 MG CAPSULE.DR PO SCH (09:24)
[2019-12-03] MEDS: LOSARTAN POTASSIUM 50 MG TABLET PO SCH (09:24)
[2019-12-03] MEDS: DOCUSATE SODIUM 100 MG CAPSULE PO SCH (09:25)
--- NOTE | 2019-12-03 11:03 | PDOC PROGRESS REPORT ---
Subjective Progress Note for:: 12/03/19 Subjective:: Medicine consultation at the request of orthopedic surgery for management of chronic medical problems. Patient admitted to orthopedics for right periprosthetic leg fracture after a fall. Patient is doing quite well today and his vitals and laboratory values also support that he is optimized for any surgical procedures that the primary physician as planned. As always, it was explained to the patient and family that no surgery is without risk but will make sure he is optimized for his surgery to reduce the risk as much as possible. Medications continue. Other than right leg pain, patient does not have any new complaints. 11/29/2019 Patient is to be doing fairly well today though he states his pain control could be much better. We talked for a long time about his home pain regimen. I made changes to his regimen today to get him closer to his usual home regimen of 10 mg oxycodone 5 times per day. We will do oxycodone 10 mg every 6 hours scheduled to be held if the patient is sleeping or somnolent. I have also added 1 mg of oral Dilaudid to help with longer lasting pain control. We will keep the IV Dilaudid for breakthrough pain only. Patient and his are in full agreement with this plan and we can always make adjustments later if it is not optimal. Other than the pain in his surgical site and right hip patient has no new complaints today. 11/30/2019 Patient doing much better today than yesterday. He had an episode of somnolence yesterday likely related to low blood counts due to acute blood loss anemia from surgery. Patient was given 1 unit PRBC and to return to his approximate baseline. Narcotics may have played a role in this as he became more anemic. I have ordered the patient to get Venofer as he and his state he has had a chronic anemia yet to be worked up by his PCP. I recommended he have a anemia lab work-up done outpatient including iron studies and folate/B12. I would be happy to do this here though he may be discharged before these results come back. I have ordered a recheck of his CBC for this afternoon. If his hemoglobin is persistently below 7 or he is anemic with symptoms he may benefit from an additional 1 unit PRBC. We have to be cautious given his history of CHF and CAD with stents. We would need to gonzales the unit of blood with a dose of Lasix if this is done. Disposition per orthopedic surgery ultimately as they are primary by believe if the hemoglobin is stable at the next check he can be discharged to a rehab facility. I increased his oxycodone back to his home dose of 10 mg with a decreased frequency of 4 times per day instead of what he takes at home which is 5 times per day. I told nursing and the patient to not use an as needed narcotic along with his scheduled narcotic without them by at least 30 minutes to 1 hour. 12/01/2019-patient is comfortably in the bed communicating well. Family members at bedside. Hemoglobin 7.8 they were hesitant getting blood transfusion at this time. Patient has drain present on the right thigh.. looks Dr. Montes is p bulmaro to discharge him today. 12/02/2019-patient is actively participating with physical therapy. No complaints no concerns expressed by the patient. Waiting for placement. 12/03/2019-patient is comfortably in the bed communicating well. Expressing desire to go home. Refusing short-term placement. Physical therapy is working with the patient. Reason For Visit: RIGHT HIP PERIPROSTHETIC FRACTURE Physical Exam Vital Signs: Temp Pulse Resp BP Pulse Ox 99.0 F 88 16 139/71 H 97 12/03/19 08:03 12/03/19 08:03 12/03/19 08:03 12/03/19 08:03 12/03/19 08:03 Intake & Output 12/02/19 12/03/19 12/04/19 06:59 06:59 06:59 Intake Total 780 1341 Output Total 1625 1400 Balance -845 -59 Weight 112.3 kg 112.5 kg General appearance: PRESENT: no acute distress, well-developed Head exam: PRESENT: atraumatic Eye exam: PRESENT: PERRLA Mouth exam: PRESENT: moist, tongue midline Neck exam: PRESENT: lymphadenopathy Respiratory exam: PRESENT: decreased breath sounds Cardiovascular exam: PRESENT: RRR. ABSENT: diastolic murmur, rubs, systolic murmur GI/Abdominal exam: PRESENT: normal bowel sounds, soft. ABSENT: distended, guarding, mass, organolmegaly, rebound, tenderness Rectal exam: PRESENT: deferred Extremities exam: PRESENT: full ROM. ABSENT: calf tenderness, clubbing, pedal edema Neurological exam: PRESENT: alert, awake, oriented to person, oriented to place, oriented to time, oriented to situation, CN II-XII grossly intact. ABSENT: motor sensory deficit Psychiatric exam: PRESENT: appropriate affect, normal mood. ABSENT: homicidal ideation, suicidal ideation Results Laboratory Results: 12/02/19 07:42 12/02/19 07:42 Impressions: Fluoroscopy 11/28/19 00:00 IMPRESSION: IMAGE(S) OBTAINED DURING PROCEDURE. Hip X-Ray 11/28/19 00:00 IMPRESSION: IMAGE(S) OBTAINED DURING PROCEDURE. Hip/Pelvis X-Ray 11/28/19 00:00 IMPRESSION: Postop images. Refer to operative note for further information. Lower Extremity CT 11/28/19 00:00 IMPRESSION: Acute, comminuted fracture of the right proximal femur which involves the greater trochanter, subtrochanteric region, and proximal femoral diaphysis. Assessment and Plan - Diagnosis (1) Fall Is this a current diagnosis for this admission?: Yes Plan: 11/27/2019-patient admitted with a fall followed by right periprosthetic fracture. Dr. Montes is going to admit the patient be requested for hospitalist consultation. Patient is going for surgery tomorrow. He is going to be n.p.o. for bleed. Basic labs and EKG was requested. Echocardiogram is requested. Not on DVT prophylaxis because of the imminent surgery tomorrow. Physical therapy c onsult case management consult requested. 12/02/2019-patient is doing well. Participating with physical therapy. Plan is to discharge him to short-term rehab when bed is available. 12/03/2019-patient is doing well. Participating with physical therapy. Plan is until this time is to arrange for place at short-term rehab. Patient is refusing go to rehab , he prefers to go home but he did not give me a timeline. (2) Hip fracture Is this a current diagnosis for this admission?: Yes Plan: 11/19/2019-patient admitted with a fall followed by right periprosthetic [place] B12 proximal femur fracture. Dr. Montes is planning to take him to the OR tomorrow. Patient started on IV morphine 1 mg every 4 hours as needed basis. GI prophylaxis initiated. Physical therapy consult was requested special education case manager consult was requested. To hold aspirin at this time. 12/01/2019-preoperative diagnosis right hip periprosthetic femur fracture, postoperative diagnosis right hip periprosthetic femur fracture status post right total hip arthroplasty femoral reversion done on 11/28/2019. dr Montes is discharging the patient today. 12/02/2019-patient admitted with a right hip periprosthetic femur fracture status post surgery. Actively participating in physical therapy. Waiting for placement. 12/03/2019-on examination this morning patient is refusing to go to short-term rehab. He prefers to go home with home health. (3) HTN (hypertension) Is this a current diagnosis for this admission?: No Plan: -No need for IV hydralazine for blood pressure control Treat blood pressure with oral medications as appropriate 12/01/2019-patient blood pressure is 106/54. Stable. 12/02/2019-blood pressure today is 110/68. Stable. Patient is asymptomatic. 12/03/19-bp is 120/68... stable. (4) Tobacco abuse Is this a current diagnosis for this admission?: No Plan: 11/27/2019-patient is a chronic daily day smoker smoking consult was provided for more than [address] him on nicotine patches. (5) CHF (congestive heart failure) Is this a current diagnosis for this admission?: No Plan: 11/19/2019 -Not in acute exacerbation, no echocardiogram on file here, patient appears well compensated Medications continue 11/30/2019 Given 1 unit PRBC yesterday with significant improvement, did not seem to have any problems managing the volume If he gets additional units of blood, would recommend also giving 20 mg IV Lasix 12/01/2019-patient has history of diastolic heart failure. EF is 65% and echocardiogram shows grade 1/grade 4 diastolic heart failure. 12/02/2019-patient is not in fluid overload at the time of my examination. Alphonso lester participating in physical therapy. 12/03/19-patient is receiving Lasix 40 mg p.o. daily. Not in fluid overload at the time of my examination. (6) Anemia Is this a current diagnosis for this admission?: Yes Plan: 12/02/2019-hemoglobin is stable. Today's hemoglobin is 7.9 and yesterday's hemoglobin is 7.8. Patient received IV iron and IV blood transfusions during this hospital stay. Plan is to repeat the labs tomorrow. Patient most likely has chronic anemia. No active signs of bleeding seen. (7) Obesity (BMI 30-39.9) Is this a current diagnosis for this admission?: No Plan: 12/02/2019-patient BMI is more than 35 diet exercise weight loss lifestyle mod ifications discussed with the patient. - Plan Summary Summary: Patient was admitted on 11/27/2019 for anticipation of a right total hip arthroplasty revision due to a periprosthetic proximal femur fracture. The medical team was consulted and their recommendations were followed throughout his stay. On 11/28/2019 the patient underwent a revision surgery. Subsequent to this he remained in house for ongoing medical management, pain control, physical therapy and disposition planning. On postoperative day #1 he had a low hemoglobin and some symptoms of anemia including confusion and lightheadedness. Due to this and his history of cardiac ischemia we transfused him 1 unit packed red blood cells. Over the course of the next 2 days his blood counts have stabilized and have improved today. On 12/01/2019 his hemoglobin is 7.8. Additionally he has had no ongoing signs or symptoms of anemia and has been working with physical therapy. His activity with therapy has been somewhat limited due to pain and at this time he may not be appropriate for discharge home safely given the increased needs for activities of daily living. At this time he is stable for discharge to rehab. He had no other acute events or complications of the course of his stay. - Time Anticipated Discharge Disposition: Home with Home Health Anticipated Discharge Timeframe: within 24 hours
[2019-12-03] MEDS: OXYCODONE HCL IR 5 MG TABLET PO PRN (17:32)
[2019-12-03] MEDS: ZOLPIDEM TARTRATE 5 MG TABLET PO PRN (22:16)
[2019-12-03] MEDS: ATORVASTATIN CALCIUM 20 MG TABLET PO SCH (22:16)
[2019-12-04] MEDS: PANTOPRAZOLE SODIUM 20 MG TABLET.DR PO SCH (05:44)
[2019-12-04] MEDS: OXYCODONE HCL SR 10 MG TABLET PO SCH ×2 (05:44→11:29)
[2019-12-04] MEDS: KETOROLAC TROMETHAMINE INJ/PF 30 MG/1 ML SDV IV SCH ×2 (06:22→13:14)
[2019-12-04] MEDS: OXYCODONE HCL IR 5 MG TABLET PO PRN (08:09)
[2019-12-04] MEDS: GABAPENTIN 300 MG CAPSULE PO SCH (09:51)
[2019-12-04] MEDS: FUROSEMIDE 40 MG TABLET PO SCH (09:51)
[2019-12-04] MEDS: DOCUSATE SODIUM 100 MG CAPSULE PO SCH (09:52)
[2019-12-04] MEDS: DULOXETINE HCL 30 MG CAPSULE.DR PO SCH (09:52)
[2019-12-04] MEDS: HYDROCHLOROTHIAZIDE 25 MG TABLET PO SCH (09:52)
[2019-12-04] MEDS: CELECOXIB 100 MG CAPSULE PO SCH (09:53)
[2019-12-04] MEDS: LOSARTAN POTASSIUM 50 MG TABLET PO SCH (09:53)
[2019-12-04] MEDS: NICOTINE 21 MG/24 HR PATCH.TD24 TD SCH (09:53)
[2019-12-04] MEDS: ASPIRIN 325 MG TABLET PO SCH (09:53)
[2019-12-04 13:13] VITALS: BP 120/68
--- NOTE | 2019-12-04 16:10 | PDOC PROGRESS REPORT ---
Subjective Progress Note for:: 12/04/19 Subjective:: Medicine consultation at the request of orthopedic surgery for management of chronic medical problems. Patient admitted to orthopedics for right periprosthetic leg fracture after a fall. Patient is doing quite well today and his vitals and laboratory values also support that he is optimized for any surgical procedures that the primary physician as planned. As always, it was explained to the patient and family that no surgery is without risk but will make sure he is optimized for his surgery to reduce the risk as much as possible. Medications continue. Other than right leg pain, patient does not have any new complaints. 11/29/2019 Patient is to be doing fairly well today though he states his pain control could be much better. We talked for a long time about his home pain regimen. I made changes to his regimen today to get him closer to his usual home regimen of 10 mg oxycodone 5 times per day. We will do oxycodone 10 mg every 6 hours scheduled to be held if the patient is sleeping or somnolent. I have also added 1 mg of oral Dilaudid to help with longer lasting pain control. We will keep the IV Dilaudid for breakthrough pain only. Patient and his are in full agreement with this plan and we can always make adjustments later if it is not optimal. Other than the pain in his surgical site and right hip patient has no new complaints today. 11/30/2019 Patient doing much better today than yesterday. He had an episode of somnolence yesterday likely related to low blood counts due to acute blood loss anemia from surgery. Patient was given 1 unit PRBC and to return to his approximate baseline. Narcotics may have played a role in this as he became more anemic. I have ordered the patient to get Venofer as he and his state he has had a chronic anemia yet to be worked up by his PCP. I recommended he have a anemia lab work-up done outpatient including iron studies and folate/B12. I would be happy to do this here though he may be discharged before these results come back. I have ordered a recheck of his CBC for this afternoon. If his hemoglobin is persistently below 7 or he is anemic with symptoms he may benefit from an additional 1 unit PRBC. We have to be cautious given his history of CHF and CAD with stents. We would need to gonzales the unit of blood with a dose of Lasix if this is done. Disposition per orthopedic surgery ultimately as they are primary by believe if the hemoglobin is stable at the next check he can be discharged to a rehab facility. I increased his oxycodone back to his home dose of 10 mg with a decreased frequency of 4 times per day instead of what he takes at home which is 5 times per day. I told nursing and the patient to not use an as needed narcotic along with his scheduled narcotic without them by at least 30 minutes to 1 hour. 12/01/2019-patient is comfortably in the bed communicating well. Family members at bedside. Hemoglobin 7.8 they were hesitant getting blood transfusion at this time. Patient has drain present on the right thigh.. looks Dr. Montes is p bulmaro to discharge him today. 12/02/2019-patient is actively participating with physical therapy. No complaints no concerns expressed by the patient. Waiting for placement. 12/03/2019-patient is comfortably in the bed communicating well. Expressing desire to go home. Refusing short-term placement. Physical therapy is working with the patient. 12/04/2019 Patient doing very well today. Long discussion with him and his about his need for an anemia work-up outpatient. They would like to be discharged home with home health and I am in agreement with this. Apparently, their insurance [employer] has been unwilling to pay for patient going to rehab facility despite orthopedics conducting a peer to peer conversation. Patient is cleared for discharge from medicine standpoint and can follow-up with PCP and orthopedics outpatient. He has no new complaints today. Reason For Visit: RIGHT HIP PERIPROSTHETIC FRACTURE Physical Exam Vital Signs: Temp Pulse Resp BP Pulse Ox 98.4 F 75 18 120/68 96 12/04/19 13:11 12/04/19 13:11 12/04/19 13:11 12/04/19 13:11 12/04/19 13:11 Intake & Output 12/03/19 12/04/19 12/05/19 06:59 06:59 06:59 Intake Total 1341 600 Output Total 1400 2525 - Weight 112.5 kg 112.5 kg General appearance: PRESENT: no acute distress, well-developed, well-nourished Head exam: PRESENT: atraumatic, normocephalic Eye exam: PRESENT: conjunctiva pink Mouth exam: PRESENT: moist Respiratory exam: PRESENT: clear to auscultation tamiko. ABSENT: rales, rhonchi, wheezes Cardiovascular exam: PRESENT: RRR. ABSENT: diastolic murmur, rubs, systolic murmur GI/Abdominal exam: PRESENT: normal bowel sounds, soft. ABSENT: distended, guarding, mass, organolmegaly, rebound, tenderness Extremities exam: PRESENT: other - Mild to moderate right hip pain, controlled Neurological exam: PRESENT: alert, awake, oriented to person, oriented to place, oriented to time, oriented to situation Psychiatric exam: PRESENT: appropriate affect, normal mood Skin exam: PRESENT: dry, warm Results Laboratory Results: 12/02/19 07:42 12/02/19 07:42 Impressions: Fluoroscopy 11/28/19 00:00 IMPRESSION: IMAGE(S) OBTAINED DURING PROCEDURE. Hip X-Ray 11/28/19 00:00 IMPRESSION: IMAGE(S) OBTAINED DURING PROCEDURE. Hip/Pelvis X-Ray 11/28/19 00:00 IMPRESSION: Postop images. Refer to operative note for further information. Lower Extremity CT 11/28/19 00:00 IMPRESSION: Acute, comminuted fracture of the right proximal femur which involves the greater trochanter, subtrochanteric region, and proximal femoral diaphysis. Assessment and Plan - Diagnosis (1) Periprosthetic fracture around internal prosthetic right hip joint Is this a current diagnosis for this admission?: Yes Plan: Surgical planning per orthopedics Hold all chemical anticoagulation Bedrest Multimodal pain control Ancef on-call TXA on-call 1 g pre-and 1 g postoperatively Orthopedic surgery following as primary 11/29/2019 Pain moderately well controlled, multiple changes made today Patient is very opioid tolerant and for the past several years has taken 10 mg oxycodone 5 times per day consistently scheduled Use IV narcotics for breakthrough pain only Added 1 mg oral Dilaudid as needed 11/30/2019 Patient had episode of somnolence yesterday when his acute blood loss anemia from surgery seemed to catch up him. We had also had a long discussion about increasing his narcotics for better pain control and his low blood count probably concentrated his narcotics dosing. Significant improvement after getting 1 unit PRBC Do not give as needed narcotics along with scheduled narcotics without separation of at least 30 minutes to 1 hour 12/02/2019-patient is doing well. Participating with physical therapy. Plan is to discharge him to short-term rehab when bed is available. 12/03/2019-patient is doing well. Participating with physical therapy. Plan is until this time is to arrange for place at short-term rehab. Patient is refusing go to rehab , he prefers to go home but he did not give me a timeline. 12/04/2019 Pain well controlled Going home with home health physical therapy Continue home pain regimen Home PT (2) CHF (congestive heart failure) Is this a current diagnosis for this admission?: No (3) Fall Is this a current diagnosis for this admission?: Yes (4) HTN (hypertension) Is this a current diagnosis for this admission?: No (5) Tobacco abuse Is this a current diagnosis for this admission?: No (6) Status post total replacement of right hip Is this a current diagnosis for this admission?: Yes - Plan Summary Summary: Patient was admitted on 11/27/2019 for anticipation of a right total hip arthroplasty revision due to a periprosthetic proximal femur fracture. The medical team was consulted and their recommendations were followed throughout his stay. On 11/28/2019 the patient underwent a revision surgery. Subsequent to this he remained in house for ongoing medical management, pain control, physical therapy and disposition planning. On postoperative day #1 he had a low hemoglobin and some symptoms of anemia including confusion and lightheadedness. Due to this and his history of cardiac ischemia we transfused him 1 unit packed red blood cells. Over the course of the next 2 days his blood counts have stabilized and have improved today. On 12/01/2019 his hemoglobin is 7.8. Additionally he has had no ongoing signs or symptoms of anemia and has been working with physical therapy. His activity with therapy has been somewhat limited due to pain and at this time he may not be appropriate for discharge home safely given the increased needs for activities of daily living. At this time he is stable for discharge to rehab. He had no other acute events or complications of the course of his stay. - Time Time Spent with patient: 15-24 minutes Medications reviewed and adjusted accordingly: Yes Anticipated Discharge Disposition: Home with Home Health Anticipated Discharge Timeframe: within 24 hours
--- NOTE | 2019-12-05 07:22 | PDOC PROGRESS REPORT ---
Subjective Progress Note for:: 12/04/19 Subjective:: Patient seen and examined. No acute events. Discussed with PT who explains he is safe for DC home with some accommodations. Patient desires to be discharged home today. Reason For Visit: RIGHT HIP PERIPROSTHETIC FRACTURE Physical Exam Vital Signs: Temp Pulse Resp BP Pulse Ox 98.4 F 75 18 120/68 96 12/04/19 13:11 12/04/19 13:11 12/04/19 13:11 12/04/19 13:11 12/04/19 13:11 Intake & Output 12/04/19 12/05/19 12/06/19 06:59 06:59 06:59 Intake Total 600 Output Total 2525 Balance -1925 Weight 112.5 kg Physical Exam: AOx3, NAD RLE NVI Wound vac holding seal, no drainage in dressing, minimal spotting Compartments soft, non tender, no calf tenderness Results Laboratory Results: 12/02/19 07:42 12/02/19 07:42 Impressions: Fluoroscopy 11/28/19 00:00 IMPRESSION: IMAGE(S) OBTAINED DURING PROCEDURE. Hip X-Ray 11/28/19 00:00 IMPRESSION: IMAGE(S) OBTAINED DURING PROCEDURE. Hip/Pelvis X-Ray 11/28/19 00:00 IMPRESSION: Postop images. Refer to operative note for further information. Lower Extremity CT 11/28/19 00:00 IMPRESSION: Acute, comminuted fracture of the right proximal femur which involves the greater trochanter, subtrochanteric region, and proximal femoral diaphysis. Assessment & Plan - Diagnosis (1) Status post total replacement of right hip Is this a current diagnosis for this admission?: Yes Plan: Plan for discharge home today - Progressed to [facility] - Keep wound vac in place until seen in the clinic - ASA daily for DVT PPX (2) Periprosthetic fracture around internal prosthetic right hip joint Is this a current diagnosis for this admission?: Yes (3) Postoperative anemia due to acute blood loss Is this a current diagnosis for this admission?: Yes - Time Time Spent with patient: Less than 15 minutes
== END 2019-12-04 13:40 | disposition home health service (06) | DRG 467 ==
LOC: OBSVTOIN 17:00 → 4W 17:00
PROVIDERS: ADMIT Orthopaedic Surgery; ATTEND Orthopaedic Surgery
PROC: 0SP90JZ Removal of Synthetic Substitute from Right Hip Joint, Open Approach (ICD-10-PCS; 2019-11-28)
PROC: 0SR902A Replacement of Right Hip Joint with Metal on Polyethylene Synthetic Substitute, Uncemented, Open Approach (ICD-10-PCS; principal; 2019-11-28 12:00)
PROC: 30233N1 Transfusion of Nonautologous Red Blood Cells into Peripheral Vein, Percutaneous Approach (ICD-10-PCS; 2019-11-29)
DX: M97.01XA Periprosthetic fracture around internal prosthetic right hip joint, initial encounter (principal); D62 Acute posthemorrhagic anemia; I50.32 Chronic diastolic (congestive) heart failure; Z11.59 Encounter for screening for other viral diseases; J44.9 Chronic obstructive pulmonary disease, unspecified; F31.9 Bipolar disorder, unspecified; I25.10 Atherosclerotic heart disease of native coronary artery without angina pectoris; E78.5 Hyperlipidemia, unspecified; W01.0XXA Fall on same level from slipping, tripping and stumbling without subsequent striking against object, initial encounter; I11.0 Hypertensive heart disease with heart failure; Z66 Do not resuscitate; F17.210 Nicotine dependence, cigarettes, uncomplicated; Y92.9 Unspecified place or not applicable; E66.9 Obesity, unspecified; Z68.35 Body mass index [BMI] 35.0-35.9, adult; Z95.5 Presence of coronary angioplasty implant and graft; Z79.82 Long term (current) use of aspirin; Z79.899 Other long term (current) drug therapy; Z88.8 Allergy status to other drugs, medicaments and biological substances
CPT/HCPCS: 01210; 01215; 36415; 36430; 80053; 81001; 83036; 83735; 85025; 85027; 85610; 86850; 86900; 86901; 86920; 87635; 93005; 93010; 93306; C1776; C9803; J0690; J1170; J1756; J1885; J2250; J2270; J2405; J2704; J2795; J3010; J3370; J3480; J3490; J7050; P9016